=== PATIENT | male | born 1960 ===

== ENCOUNTER 2023-07-24 11:09 | Outpatient (REF) | payer OTHER, SELFPAY ==
[2023-07-24 14:25] LABS: MANUAL DIFF FLAG NO
[2023-07-24 14:37] LABS: Basophils Percent Auto 0.4 % (0-2); Eosinophils Absolute Auto 0.4 X10*3/uL (0.0-0.4); Eosinophils Percent Auto 4.2 % (0-4); Hematocrit 46.6 % (42.0-52.0); Hemoglobin 15.2 g/dl (14.0-18.0); Imm Gran Abs Auto 0.03 X10*3/uL (0.00-0.03); Imm Gran Pct Auto 0.3 % (0.0-0.4); Lymphocytes Absolute Auto 2.3 X10*3/uL (1.2-4.9); Lymphocytes Percent Auto 23.1 % (20-40); Mean Corpuscular HGB Conc 32.6 g/dl (31.0-36.0); Mean Corpuscular Hemoglobin 30.1 pg (27.0-33.0); Mean Corpuscular Volume 92.3 fL (80.0-98.0); Mean Platelet Volume 10.3 fL (9.4-12.4); Monocytes Absolute Auto 0.8 X10*3/uL (0.1-1.2); Monocytes Percent Auto 7.9 % (2-11); Neutrophils Absolute Auto 6.5 x10*3/uL (2.0-8.3); Neutrophils Percent Auto 64.1 % (45-73); Platelet Count 348 X10*3/uL (160-400); Red Blood Count 5.05 X10*6/uL (4.60-5.80); Red Cell Distribution Width 13.1 % (11.0-16.0); White Blood Count 10.1 X10*3/uL (4.8-10.8)
[2023-07-24 15:20] LABS: Alanine Aminotransferase 22 U/L (0-40); Alkaline Phosphatase 73 U/L (39-117); Anion Gap 11 (12-20); Aspartate Amino Transferase 16 U/L (5-37); Bilirubin Total 0.4 mg/dL (0.0-1.0); Blood Urea Nitrogen 13 mg/dL (9-16); Calcium 9.5 mg/dL (8.4-10.2); Carbon Dioxide 31 mmol/L (22-29); Chloride 102 mmol/L (96-108); Cholesterol 176 mg/dL (<200); Estimated Glomerular Filt Rate > 60; Glucose Fasting 83 mg/dL (60-99); HDL Cholesterol 35 mg/dL (>40); LDL Cholesterol Calculated 120 mg/dL (<100); Potassium 4.4 mmol/L (3.3-5.1); Sodium 140 mmol/L (135-145); Total Protein 8.1 g/dL (6.5-8.0); Triglycerides 109 mg/dL (<150)
[2023-07-24 15:23] LABS: Prostate Specific Antigen Scr 5.97 ng/mL (<0.05-4.0)
[2023-07-24 15:26] LABS: TSH reflex Free T4 2.44 uIU/mL (0.32-4.0)
== END 2023-07-24 11:10 | disposition home or self-care (01) ==
LOC: HO.WFDLDS 11:09
PROVIDERS: Visit Provider Family Medicine
DX: Z00.00 Encounter for general adult medical examination without abnormal findings (principal); R13.10 Dysphagia, unspecified; Z86.73 Personal history of transient ischemic attack (TIA), and cerebral infarction without residual deficits; Z12.5 Encounter for screening for malignant neoplasm of prostate
CPT/HCPCS: 36415; 80053; 80061; 84153; 84443; 85025

== ENCOUNTER 2023-08-07 11:19 | Outpatient (REF) | payer OTHER, SELFPAY ==
[2023-08-07 13:28] LABS: Appearance Urine Clear; Color Urine Yellow; Glucose Urine UA Negative (Negative); Leukocyte Esterase Urine Trace (Negative); Nitrite Urine Negative (Negative); PH 6.5 (5.0-9.0); Specific Gravity - Urine 1.025 (1.005-1.025); UMIC TRIGGER UA YES; Urine Blood Negative (Negative); Urine Ketones Negative (Negative); Urine Protein Negative (Neg-Trace)
[2023-08-07 13:40] LABS: Bacteria Urine None Seen (None Seen); Hyaline Casts Urine 0-2 /LPF (0-2); RBC Urine 0-2 /HPF (0-2); Squamous Epithelial Cell Urine 0-2 /HPF (0-2); WBC Urine 0-5 /HPF (0-5)
[2023-08-07 16:34] LABS: Creatinine Urine 326.41 mg/dL; Microalbum/Creatinine Ratio Ur 8.5 ug/mg cr (<30)
[2023-08-07 17:07] LABS: Prostate Specific Antigen Scr 6.27 ng/mL (<0.05-4.0)
== END 2023-08-07 11:20 | disposition home or self-care (01) ==
LOC: HO.HMGCLDS 11:19
PROVIDERS: PCP Family Medicine; Visit Provider Family Medicine
DX: Z00.00 Encounter for general adult medical examination without abnormal findings (principal); I10 Essential (primary) hypertension; R97.20 Elevated prostate specific antigen [PSA]; Z12.5 Encounter for screening for malignant neoplasm of prostate
CPT/HCPCS: 36415; 81001; 82043; 82570; 84153

== ENCOUNTER 2023-09-30 14:50 | Outpatient (AMB) | payer OTHER, SELFPAY ==
--- NOTE | 2023-09-30 15:25 | A.OFFVIS_ITS ---
Intake Visit Reasons: Elevated PSA Intake Note: New patient is present for Elevated PSA Entry Level Account Manager Required: Yes Entry Level Account Manager Language: Qatari Allergies levofloxacin Allergy (Intermediate, Verified 11/13/23 13:04) Rash Medication List - Last Reconciled 09/30/23 by Brent Vasquez MD aripiprazole (Abilify) 2 mg PO BEDTIME 30 days aspirin (Adult Aspirin Regimen) 81 mg PO DAILY 90 days levofloxacin 500 mg PO ONCE 3 days lisinopril 5 mg PO DAILY 90 days omeprazole 40 mg PO DAILY 90 days HPI Comments Details: Fercho is a pleasant Qatari-speaking male. He is a patient of Dr. Yates. He has seen for the following urologic conditions - elevated PSA Persistent elevated PSA recommend prostate biopsy PSA 08/11 6.3 PFSH Medical History High blood pressure High cholesterol Mini stroke Surgical History S/P cholecystectomy History of appendectomy Family History Father Colon cancer Social History Household Members: Family Both parents involved: No Caregiver staying overnight: No Housing: House Are you a primary daycare provider to a significant other at home: No Do you presently have visiting nurse or other home services: No 75 years or older and lives alone: No Alcohol intake: never Patient Tobacco Use Status: Never used Tobacco e-Cigarette/Vaping Use: Never Used Substance Use Type: Marijuana service: No Current occupational status: other Cognitive needs: No Hearing needs: No Vision needs: No Review of Systems Const Denies chills and Denies fever(s) Card Reports no additional complaints and Denies syncope Resp Denies cough GI Denies abdominal pain and Denies heartburn Reports as per HPI and Denies change in libido Neuro Denies syncope Psych Denies change in libido Endo Denies change in libido Physical Exam Const General: cooperative, healthy appearing, comfortable and no acute distress Orientation/consciousness: patient oriented x3 HEENT Face and sinus: Yes normal facial exam Mouth: moist mucous membranes Neck Neck: Yes normal visual inspection, Yes full ROM and Yes trachea midline Chest Chest palpation & inspection: normal inspection of the chest Resp Effort & Inspection: normal respiratory effort, able to speak in complete sentences and no respiratory distress GI Inspection: Yes normal to inspection Back/Spine/Pelvis Cervical Spine: normal cervical lordosis Thoracic/Lumbar Spine: thoracic and lumbar spine normal to inspection Skin General skin exam: no rashes or lesions noted Neuro General: patient oriented x3, gait normal, tone normal and moves all extremities Extrem General: Yes normal to inspection and Yes capillary refill normal Assessment & Plan Assessment & Plan (1) Elevated PSA: Code(s): R97.20 - Elevated prostate specific antigen [PSA] Category: Medical Plan Prostate biopsy Medications: New levofloxacin Take day before, day of and day after procedure 500 mg PO ONCE 3 tabs 0RF 3 days R97.20 - Elevated prostate specific antigen [PSA] Patient Instructions: Imaging studies, laboratory and physical exam results were discussed and reviewed in detail. No major barriers to patient understanding were identified. An opportunity to ask questions regarding the treatment plan was provided. All questions were answered. The patient expressed understanding and agreement with the above treatment plan. The patient is aware they should contact our office by phone for worsening of their current condition or the appearance of new urologic symptoms. Compliance is encouraged with any medications and followup testing that is ordered. It is a privilege to participate in the urologic care of your patient. If you have any questions or concerns regarding treatment for the above conditions, or other urologic issues, please do not hesitate to contact me. The office telephone contact is [phone]. This note is constructed using voice recognition software. While every effort has been made to ensure accuracy assistant signal maintainer errors may have been included. Yours sincerely, Dr Brent Vasquez MD, [facility] - Urology Providers of Expert, Compassionate Care for the Genitourinary System Coding Level of Care Code New Pt Level 4 (83672) Diagnoses Elevated PSA R97.20
== END 2023-09-30 15:59 | disposition home or self-care (01) ==
PROVIDERS: PCP Family Medicine; Visit Provider Urology
DX: R97.20 Elevated prostate specific antigen [PSA] (principal)
CPT/HCPCS: 99204

== ENCOUNTER → 2023-09-30 14:50 | Outpatient (BNVA) | payer OTHER, SELFPAY | PROVIDERS: PCP Family Medicine; Visit Provider Urology | DX: R97.20 Elevated prostate specific antigen [PSA] (principal) | CPT/HCPCS: 99202 ==

== ENCOUNTER 2023-10-20 07:44 | Outpatient (REF) | payer OTHER, SELFPAY ==
--- NOTE | 2023-10-20 08:42 | W.PM.OPN ---
Operative Note Operative Note Date of Service: 10/20/23 Narrative: Preoperative diagnosis: Elevated PSA Postoperative diagnosis: Elevated PSA Procedure: 1. transrectal ultrasound measurement of prostate 2. transrectal ultrasound-guided pudendal nerve block 3. transrectal ultrasound-guided prostate biopsy 12 core Surgeon: Dr. Brent Vasquez Anesthetic: 10cc 1% lidocaine Indications for procedure: Elevated PSA 6.3 Counselling: Technical aspects, risks and benefits of proposed procedure were discussed in full. All questions have been answered, written consent has been obtained and patient agrees to proceed. Procedure: The patient was brought into the procedure area and placed in a left lateral decubitus position. Patient identity confirmed. Perioperative antibiotics confirmed. Safety pause time out performed. ИВАН performed to dilate rectal sphincter Iodine 10cc with 60 cc gel was placed per rectum to reduce infection risk using a catheter tip syringe. 8 Hz Lamar rectal end-fire ultrasound probe was placed transrectally without difficulty. The prostate was visualized. Seminal vesicles were normal. Prostate margins were clearly demarcated. Bladder was seen superiorly. No cystic structures were noted No calcifications were noted at the surgical margin The prostate was otherwise heterogenous in nature, prominent peripheral zone The prostate was measured in 3 dimensions Prostatic Width: 6.4 Prostatic Height: 5.6 Urethral Length: 6.2 Total volume equals : 115 gm An ultrasound-guided pudendal nerve block was performed using a 22 gauge spinal needle in the sagittal plane. 4 cc of 1% lidocaine placed at the junction of each seminal vesicle and 2 cc placed at the apex of the prostate. A 12 core biopsy was performed with 6 cores each side using an 18 gauge prostate biopsy gun. Two cores were taken at the apex, mid and base. Cores were spaced between lateral and medial. He tolerated the procedure well, minimal rectal bleeding. Blood pressure remained stable following procedure. Was able to ambulate to bathroom after 5 minutes. Printed instructions regarding antibiotic use and common side effects from the procedure such as low-grade temperature, potential infection and bleeding were given Preprocedure and postprocedure blood pressures were normalized with readings after the procedure and 5 minutes later. Final vital signs show temperature 98.5 degrees, BP 146/84 O2 96% room air with a pulse of 77. This is in line with preprocedure findings Pathology: 12 core prostate biopsy.
== END 2023-10-20 07:45 | disposition home or self-care (01) ==
LOC: HO.US 07:44
PROVIDERS: PCP Family Medicine; Visit Provider Urology
DX: R97.20 Elevated prostate specific antigen [PSA] (principal)
CPT/HCPCS: 55700; 76942; 88305

== ENCOUNTER → 2023-10-20 07:44 | Outpatient (BNV) | payer OTHER, SELFPAY | PROVIDERS: PCP Family Medicine; Visit Provider Urology | DX: R97.20 Elevated prostate specific antigen [PSA] (principal) | CPT/HCPCS: 55700; 76942 ==

== ENCOUNTER 2023-11-12 13:12 | Outpatient (AMB) | payer OTHER, SELFPAY ==
--- NOTE | 2023-11-12 13:14 | MHC.OFFVIS ---
Intake Visit Reasons: Prostrate biopsy results Intake Note: Patient is Present for Telephone Follow Up Prostate Biopsy Urology Med:None Antibiotic Allergy: Levofloxacin Blood Thinner:Aspirin Tower Hoist Operator Required: Yes Tower Hoist Operator Language: Pashto Allergies levofloxacin Allergy (Intermediate, Verified 11/12/23 13:16) Rash HPI Comments Details: Fercho is a pleasant Pashto-speaking male. He is a patient of Dr. Yates. He has seen for the following urologic conditions - elevated PSA Discuss biopsy results Shows chronic inflammation setting of BPH Recommend starting finasteride Six-month follow-up Elevated PSA 08/11 6.3 PFSH Medical History High blood pressure High cholesterol Mini stroke Surgical History S/P cholecystectomy History of appendectomy Family History Father Colon cancer Social History Household Members: Family Both parents involved: No Caregiver staying overnight: No Housing: House Are you a primary career development manager to a significant other at home: No Do you presently have visiting nurse or other home services: No 75 years or older and lives alone: No Alcohol intake: never Patient Tobacco Use Status: Never used Tobacco e-Cigarette/Vaping Use: Never Used Substance Use Type: Marijuana service: No Current occupational status: other Cognitive needs: No Hearing needs: No Vision needs: No Review of Systems Const All systems reviewed & are unremarkable except as noted in HPI and below Reports no additional complaints Resp Reports no additional complaints GI Reports no additional complaints Reports as per HPI Musc Reports no additional complaints Physical Exam Telemedicine evaluation Appropriate responses Regular breathing rate and rhythm HEENT Head: Yes normal to inspection Ears: hearing grossly normal bilaterally Eyes General: appearance normal, both eyes and all related structures Neck Neck: Yes normal visual inspection Chest Chest palpation & inspection: normal inspection of the chest Resp Effort & Inspection: normal respiratory effort and able to speak in complete sentences Telehealth Telehealth Telehealth Platform: [facility] Location of provider rendering services: practice address Location of patient: address on file Patient Identification confirmed using: Name, : Yes Telehealth method: video Patient verbally consented to treatment: Yes Patient verbally consented to billing insurance company: Yes Patient informed of any privacy concerns related to visit: Yes Minutes spent on Phone/Video with Pt.: 15 Assessment & Plan Assessment & Plan (1) Elevated PSA: Code(s): R97.20 - Elevated prostate specific antigen [PSA] Category: Medical Plan Start finasteride 6m f/u PSA Orders: Orders PSA,Total (Free>4and<10) 6 Months R97.20 - Elevated prostate specific antigen [PSA] Medications: New finasteride 5 mg PO DAILY 90 days 90 tabs 1RF N13.8 - Other obstructive and reflux uropathy, N40.1 - Benign prostatic hyperplasia with lower urinary tract symptoms, R33.9 - Retention of urine, unspecified, R97.20 - Elevated prostate specific antigen [PSA] Patient Instructions: Imaging studies, laboratory and physical exam results were discussed and reviewed in detail. No major barriers to patient understanding were identified. An opportunity to ask questions regarding the treatment plan was provided. All questions were answered. The patient expressed understanding and agreement with the above treatment plan. The patient is aware they should contact our office by phone for worsening of their current condition or the appearance of new urologic symptoms. Compliance is encouraged with any medications and followup testing that is ordered. It is a privilege to participate in the urologic care of your patient. If you have any questions or concerns regarding treatment for the above conditions, or other urologic issues, please do not hesitate to contact me. The office telephone contact is [phone]. This note is constructed using voice recognition software. While every effort has been made to ensure accuracy water/wastewater engineer errors may have been included. Yours sincerely, Dr Brent Vasquez MD, [facility] - Urology Providers of Expert, Compassionate Care for the Genitourinary System Coding Level of Care Code Tele Est Pt Level 4 (66859) Diagnoses Elevated PSA R97.20
== END 2023-11-12 14:10 | disposition home or self-care (01) ==
LOC: HO.HUSH 13:12
PROVIDERS: PCP Family Medicine; Visit Provider Urology
DX: R97.20 Elevated prostate specific antigen [PSA] (principal)
CPT/HCPCS: 99214

== ENCOUNTER → 2023-11-12 13:12 | Outpatient (BNVA) | payer OTHER, SELFPAY | PROVIDERS: PCP Family Medicine; Visit Provider Urology ==

== ENCOUNTER 2023-11-13 12:58 | Outpatient (AMB) | payer OTHER, SELFPAY ==
[2023-11-13 13:00] VITALS: BP 136/82; PULSE 85; O2SAT 97; BMI 28.0
--- NOTE | 2023-11-13 13:05 | A.OFFPC_ITS ---
Vital Signs 11/13/23 13:00 Height 5 ft 10 in Weight 195 lb BMI 28.0 BP 136/82 Blood Pressure Location Rt brachial Position Sitting Pulse 85 Pulse Source Pulse Oximeter Pulse Oximetry (%) 97 Oxygen Delivery Method Room Air Intake Visit Reasons: Extended exam with f/u labs and health maint. Allergies levofloxacin Allergy (Intermediate, Verified 11/13/23 13:04) Rash Tobacco use date assessed: 07/24/23 Dental Screening Dental Screen Date: 07/24/23 HPI Extended exam with f/u labs and health maint. HPI Details 63 y/o male presents for an extended exa m with f/u labs and health maintenance. Labs drawn 07/24/23. Reviewed labs with pt. Triglycerides 109. TC 176. LDL 120. HDL low at 35. PSA elevated - 6.27. Has not gotten a call from ENT yet for a barium swallow test - they report ongoing difficulty swallowing. PHQ-9 24, HUNTER-7 21 today. Had not received Abilify. Blood pressure today 136/82. He is on lisinopril 10mg daily. [facility] Medical History High blood pressure High cholesterol Mini stroke Surgical History S/P cholecystectomy History of appendectomy Family History Father Colon cancer Social History Household Members: Family Both parents involved: No Caregiver staying overnight: No Housing: House Are you a primary resident care associate to a significant other at home: No Do you presently have visiting nurse or other home services: No 75 years or older and lives alone: No Alcohol intake: never Patient Tobacco Use Status: Never used Tobacco e-Cigarette/Vaping Use: Never Used Substance Use Type: Marijuana service: No Current occupational status: other Cognitive needs: No Hearing needs: No Vision needs: No Questionnaire PHQ-9 Over the last 2 weeks, how often have you been bothered by any of the following problems? 1. Little interest or pleasure in doing things: nearly every day 2. Feeling down, depressed, or hopeless: nearly every day 3. Trouble falling or staying asleep, or sleeping too much: nearly every day 4. Feeling tired or having little energy: nearly every day 5. Poor appetite or overeating: nearly every day 6. Feeling bad about yourself - or that you are a failure or have let yourself or your family down: nearly every day 7. Trouble concentrating on things, such as reading the newspaper or watching television: nearly every day 8. Moving or speaking so slowly that other people could have noticed. Or the opposite - being so fidgety or restless that you have been moving around a lot more than usual: nearly every day 9. Thoughts that you would be better off or of hurting yourself in some way: not at all Total score: 24 Depression Screening Interpretation: Positive Depression Screening Done: Yes 94104 - PHQ-9 Billing: Yes Source: Developed by Drs. Memo Tam, Malika Mason, Darius Acuna and colleagues, with an educational micaela from [employer]. Thrive Questionnaire Date Thrive assessed: 07/24/23 I am a: Patient What is your living situation today?: I have a place to live, but I am worried about losing it in the future Within the past 12 months, did the food you bought not last and you didn't have the money to get more?: Never true Within the past 12 months, did you worry whether your food would run out before you got money to buy more?: Never true Do you have trouble paying for medicines?: No Do you have trouble getting transportation to medical appointments?: No Do you have trouble paying your heating and electricity bill?: No Do you have trouble taking care of your child, family member or friend?: No Do you have trouble with day-to-day activities such as bathing, preparing meals, shopping, managing finances, etc.?: Yes Are you currently unemployed and looking for a job?: No Are you interested in more education?: No THRIVE Score: 1 AUDIT C Alcohol Use Questionnaire (AUDIT-C) 1. How often do you have a drink containing alcohol?: Never 3. How often do you have six or more drinks on one occasion?: Never Total Score: 0 HUNTER-7 AMB Questionnaire HUNTER-7 Date HUNTER - 7 assessed: 07/24/23 Feeling nervous, anxious, or on edge: 3 = Nearly every day Not being able to stop or control worryin = Nearly every day Worrying too much about different things: 3 = Nearly every day Trouble relaxin = Nearly every day Being so restless that it is hard to sit still: 3 = Nearly every day Becoming easily annoyed or irritable: 3 = Nearly every day Feeling afraid as if something awful might happen: 3 = Nearly every day Total HUNTER-7 score (0-4 normal; 5-9 mild; 10-14 moderate; 15-21 severe): 21 Source: Developed by Drs. Memo Tam, Malika Mason, Darius Acuna and colleagues, with an educational micaela from [employer]. HUNTER-7 Assessment Billing HUNTER-7 Assessment Tool: HUNTER-7 Assessment 13502 Review of Systems Const Denies chills, Denies fatigue, Denies fever(s), Denies headache(s) and Reports weakness Eyes Denies change in vision ENT Denies dizziness, Denies headache(s), Denies hearing loss, Denies nasal congestion, Denies sinus pain, Denies sinus pressure and Denies sore throat Card Denies chest pain, Denies lightheadedness, Denies dyspnea and Denies other (palpitations) Resp Denies cough, Denies dyspnea and Denies wheezing GI Denies abdominal pain, Denies melena, Denies hematochezia, Denies change in bowel habits, Denies dyspepsia and Denies nausea Denies hematuria and Denies dysuria Musc Reports abnormal gait, Denies myalgias, Denies arthralgias, Denies numbness and Denies tingling Skin/Breast Denies rash, Denies unusual bruising and Denies wounds Neuro Reports abnormal gait, Denies dizziness, Denies headache(s), Denies memory loss, Denies numbness, Denies Sensory deficit (Neuro), Denies tingling and Reports weakness Psych Reports anxiety, Reports depression and Denies memory loss Endo Denies cold intolerance, Denies fatigue, Denies heat intolerance, Denies polydipsia and Denies polyuria Sebastian/Lymph Denies easy bleeding and Denies easy bruising Aller/Immun Denies wheezing Physical exam (Primary Care) Vital Signs: Last Vital Signs Pulse 85 11/13/23 13:00 BP 136/82 11/13/23 13:00 Pulse Ox 97 11/13/23 13:00 Oxygen Delivery Method Room Air 11/13/23 13:00 BMI result Body Mass Index 28.0 Tobacco/Smoking Status: Tobacco use Status Tobacco use date assessed 07/24/23 11/13/23 13:05 Patient Tobacco Use Status Never used Tobacco 11/13/23 13:05 e-Cigarette/Vaping Use Never Used 11/13/23 13:05 PHQ-9: PHQ-9 Score PHQ-9: Total score 11/13/23 13:12 Depression Screening Interpretation: Positive Thrive Assessment: Date of Thrive Assessment Date Thrive assessed 07/24/23 11/13/23 13:05 Const General: no acute distress, well developed, alert and awake Nutritional Appearance: well nourished Orientation/consciousness: patient oriented x3 HENMT Head: Yes normocephalic and Yes atraumatic Ears: hearing grossly normal bilaterally and TM's normal bilaterally General nose exam: Normal external nose present and Normal nares present Mouth: Normal oral and palatal mucosa present and moist mucous membranes Teeth and gingiva: dentition normal Throat: Yes posterior oropharynx normal Eyes General: appearance normal, both eyes and all related structures Pupils: Equal, round and reactive pupils present and Pupil accommodation reflex normal EOM: EOMs intact bilaterally Neck Neck: Yes normal visual inspection, Yes no lymphadenopathy and Yes trachea midline Thyroid: Thyroid normal Carotids: no bruits Lymphatic: no lymphadenopathy noted Chest Chest palpation & inspection: normal inspection of the chest Resp Effort & Inspection: normal respiratory effort Auscultation: clear to auscultation bilaterally Cardio Rate: regular rate Rhythm: regular rhythm Heart sounds: S1 normal heart sound present, S2 normal heart sound present, no gallops, no murmurs and no rubs Bruits: no abdominal aortic bruits and no carotid bruits GI Palpation (GI): No Abdominal aortic bruit present, Soft to palpation, nontender, No hepatosplenomegaly present and No Rebound tenderness present Auscultation: normal bowel sounds General: Yes no CVA tenderness Back/Spine/Pelvis Back: no CVA tenderness Cervical Spine: cervical ROM normal and No Cervical spine tenderness Thoracic/Lumbar Spine: thoraco-lumbar ROM normal, No pain with thoraco-lumbar ROM, No thoracic spinal tenderness and No lumbar spinal tenderness Skin Lesions: no lesions Rashes: no rashes Trauma: no lacerations or abrasions Wounds: no wounds Nails: normal Neuro Other: L sided weakness General: patient oriented x3 Cranial nerves: Yes Equal, round and reactive pupils present Cognition (Neuro): normal cognition Gait exam (Neuro): gait abnormal Motor exam (neuro): strength not 5/5 throughout Sensory Exam: No Sensory deficit (Neuro) Deep tendon reflexes (DTR's): Right patellar reflex intensity grade: 2+ and Left patellar reflex intensity grade: 2+ Extrem General: Yes normal to inspection and No edema Psych Appearance: grossly normal Affect: normal affect Attitude: cooperative Thought process: Normal thought process present Assessment and Plan Assessment & Plan (1) High cholesterol: Code(s): E78.00 - Pure hypercholesterolemia, unspecified Plan: LDL?cholesterol?is?too ?high.??Goal?is?less?than?70?for?patient?with?history?of?CVA. Start?atorvastatin Will?follow-up?in?6?weeks (2) Elevated PSA: Code(s): R97.20 - Elevated prostate specific antigen [PSA] Plan: Followed?by? Follow-up?with?urology?as?recommended (3) High blood pressure: Code(s): I10 - Essential (primary) hypertension Plan: Blood?pressure?controlled?but?still?a?little?high er?than?goal.??Recommend?goal?of?less?than?130/80 Increase?lisinopril?to?10?mg?daily (4) Difficulty swallowing: Code(s): R13.10 - Dysphagia, unspecified Plan: Had?ordered?a?modified?barium?swallow?study Patient?has?not?been?contacted?about?this I?have?asked?the?office?manager lean?to?look?into ?this?and?get?this?scheduled?as?soon?as?possible He?also?had?some?GERD?and?I?gave?him?omeprazole?to?see?if?this?would?help?with?s wallowing. It?has?improved?GERD?but?has?not?improved?swallowing (5) Depression with anxiety: Code(s): F41.8 - Other specified anxiety disorders Plan: Patient?has?a?psychiatrist He?has?been?taking?fluoxetine?and?hydroxyzine. Still?significantly?elevated?anxiety?and?depression We?had?discussed?using?Abilify?at?last?visit?but?patient?has?not?receive?this. Sent?script?again He?can?discontinue?if?causing?any?adverse?effects?or?not?helping.??Discuss?with? psychiatrist Follow-up?with?psychiatrist?as?recommended (6) Screening for colon cancer: Code(s): Z12.11 - Encounter for screening for malignant neoplasm of colon Plan: Referred?to?Gastroenterology (7) Screening for prostate cancer: Code(s): Z12.5 - Encounter for screening for malignant neoplasm of prostate Plan: As?above,?follow-up?with??[facility]?as?recommended (8) Weakness: Code(s): R53.1 - Weakness Plan: Patient?has?lower?extremity?weakness?on?the?left?secondary?to?CVA.??Also?unstead y?gait Recommended?a?cane?and?I?have?given?him?a?script?for?this (9) Unsteady gait: Code(s): R26.81 - Unsteadiness on feet Plan: As?above (10) Adult general medical exam: Code(s): Z00.00 - Encounter for general adult medical examination without abnormal findings Plan: 63-year-old?male?presents?for?extended?exam Orders: Orders Comprehensive [place]. Panel Fast Today E78.00 - Pure hypercholesterolemia, unspecified, Z00.00 - Encounter for general adult medical examination without abnormal findings Lipid Panel Today E78.00 - Pure hypercholesterolemia, unspecified, Z00.00 - Encounter for general adult medical examination without abnormal findings Referrals Gastroenterology Referral Z12.11 - Encounter for screening for malignant neoplasm of colon Medications: New atorvastatin 40 mg PO BEDTIME 90 days 90 tabs 3RF cane Daily, As directed, 999 days 1 ea 0RF R26.81 - Unsteadiness on feet, R53.1 - Weakness, Z86.73 - Personal history of transient ischemic attack (TIA), and cerebral infarction without residual deficits Changed From lisinopril 5 mg PO DAILY 90 days 90 tabs 0RF To lisinopril 10 mg PO DAILY 90 days 90 tabs 2RF Refilled aripiprazole (Abilify) 2 mg PO BEDTIME 30 days 30 tabs 2RF Coding Level of Care Code Est Pt Level 4 (99645) Diagnoses High cholesterol E78.00 Elevated PSA R97.20 High blood pressure I10 Difficulty swallowing R13.10 Depression with anxiety F41.8 Screening for colon cancer Z12.11 Screening for prostate cancer Z12.5 Weakness R53.1 Unsteady gait R26.81 Adult general medical exam Z00.00 Additional Codes HUNTER-7 Assessment Billing - HUNTER-7 Assessment Tool: HUNTER-7 Assessment [id number] ([id number])
== END 2023-11-13 13:44 | disposition home or self-care (01) ==
PROVIDERS: PCP Family Medicine; Visit Provider Family Medicine
DX: Z00.00 Encounter for general adult medical examination without abnormal findings (principal); E78.00 Pure hypercholesterolemia, unspecified; R97.20 Elevated prostate specific antigen [PSA]; I10 Essential (primary) hypertension; R13.10 Dysphagia, unspecified; F41.8 Other specified anxiety disorders; Z12.11 Encounter for screening for malignant neoplasm of colon; Z12.5 Encounter for screening for malignant neoplasm of prostate; R53.1 Weakness; R26.81 Unsteadiness on feet
CPT/HCPCS: 99214; 99396

== ENCOUNTER 2023-12-23 13:58 | Outpatient (REF) | payer OTHER, SELFPAY ==
--- NOTE | ~2023-12-23 | FL_ITS ---
EXAMINATION: Modified Barium Swallow CLINICAL INFORMATION: Dysphagia. COMPARISON: Barium swallow examination in 12/24/2017. TECHNIQUE: Modified barium swallow was performed under lateral fluoroscopy with patient in standing position. Barium mixed with solids and liquids of different consistencies was administered by the speech pathologist. Examination was recorded in the fluoroscopy suite. FINDINGS: Laryngeal penetration is observed with multiple consistencies of barium. No subglottic aspiration was observed. The patient swallow the barium tablet without any difficulty. The tablet passed into the stomach with minimal stasis. FLUOROSCOPY TIME: 58 seconds Number of Spot Images: N/A DOSE AREA PRODUCT: 622.5 uGy-m2 (microgray-meter squared) FL/FL Modified Barium Swallow IMPRESSION: 1. Laryngeal penetration was observed with multiple consistencies of barium. No subglottic aspiration was observed. Refer to the speech therapy report for further clarification This procedure was performed by Brian Sanchez PA-C, and supervised by Dr. Tatum Electronically signed by: Minh Tatum MD 12/25/2023 03:45 PM EDT
[2023-12-23 15:45] LABS: Alanine Aminotransferase 24 U/L (0-40); Albumin Level 4.1 g/dL (3.5-5.0); Alkaline Phosphatase 79 U/L (39-117); Anion Gap 14 (12-20); Aspartate Amino Transferase 17 U/L (5-37); Bilirubin Total 0.4 mg/dL (0.0-1.0); Blood Urea Nitrogen 18 mg/dL (9-16); Calcium 9.7 mg/dL (8.4-10.2); Carbon Dioxide 24 mmol/L (22-29); Chloride 105 mmol/L (96-108); Cholesterol 113 mg/dL (<200); Estimated Glomerular Filt Rate > 60; Glucose Fasting 135 mg/dL (60-99); HDL Cholesterol 33 mg/dL (>40); LDL Cholesterol Calculated 57 mg/dL (<100); Potassium 3.9 mmol/L (3.3-5.1); Sodium 139 mmol/L (135-145); Total Protein 7.8 g/dL (6.5-8.0); Triglycerides 117 mg/dL (<150)
[2023-12-23 15:55] LABS: Appearance Urine Clear; Color Urine Yellow; Glucose Urine UA Negative (Negative); Leukocyte Esterase Urine Negative (Negative); Nitrite Urine Negative (Negative); PH 5.5 (5.0-9.0); Specific Gravity - Urine >= 1.030 (1.005-1.025); Urine Blood Negative (Negative); Urine Ketones Negative (Negative); Urine Protein Negative (Neg-Trace)
--- NOTE | 2023-12-25 14:32 | MHC.SL.IMP ---
Date of Plan of Treatment: 12/23/23 Onset of Symptoms/Illness: 12/22/20 Date Treatment Started: 12/23/23 Admitting Diagnosis: Dysphagia Primary Speech & Language Diagnosis: R13.10 Dysphagia Reason for Today's Visit: 01067 Modified Barium Swallow Study Pre-evaluation Dietary Consistencies: Regular Pre-evaluation Liquid Consistency: Thin Pre-evaluation Medication Administration: Whole with Liquid Medical History: Modified Barium Swallow Study Fluoroscopic Evaluation of Swallowing Function CPT Code 06784 Evaluation Year: 2023 Reason for Study: Difficulty swallowing Referring Physician: Ryley Yates MD Evaluating Clinician: Kerrie Fisher MA, CCC-VOCATIONAL REHABILITATION ADMINISTRATOR Study Number: 1 Patient Name: Fercho Rizo Colon Status: Outpatient, Ambulatory Age: 63 Gender: Male Medical History Medical History High blood pressure High cholesterol Mini stroke Surgical History S/P cholecystectomy History of appendectomy Current (pre-evaluation) Intake/Diet: Route: PO Diet Grade: Regular Liquid Consistencies: Thin Pre-Study Functional Oral Intake Scale (FOIS): 7- Total oral intake with no restrictions Pain: None reported at time of study SUBJECTIVE: Patient is a 63 year old male with history of CVA referred for a modified barium swallow study by his primary care provider, Ryley Yates MD. Patient reportedly takes omeprazole for GERD, but has persisting issues swallowing. Patient reports he has difficulty with pills and solid foods. Patient describes feeling the pill get stuck and ?go down very slowly? after drinking a lot of water. Patient reports onset of dysphagia 2-3 years ago. He denies odynophagia. Oral Motor Exam Facial Symmetry: Symmetrical Mouth Occlusion: Normal Oral-Facial Teeth Characteristics: Intact/Normal Oral-Facial Lip Pucker Description: Normal Oral-Facial Smile (Lips) Description: Normal Oral-Facial Puff Cheeks Description: Normal Tongue Size: Normal Food and Liquid Trials: Oral Impairment: Lip Closure: Did not test Oral Impairment: Tongue Control During Bolus Hold: Did not test Oral Impairment: Bolus Preparation/Mastication: 1=Slow prolonged chewing/mashing with complete re-collection Oral Impairment: Bolus Transport/Lingual Motion: 0=Brisk tongue motion Oral Impairment: Oral Residue: 2=Residue collection on oral structures Oral Impairment:Initiation of Pharyngeal Swallow: 1=Bolus head in valleculae Pharyngeal Impairment: Soft Palate Elevation: 0=No bolus between soft palate (SP)/pharyngeal wall (PW) Pharyngeal Impairment: Laryngeal Elevation: 1=Partial thyroid cartilage/arytenoids to epiglottic petiole movement Pharyngeal Impairment: Anterior Hyoid Excursion: 1=Partial anterior movement Pharyngeal Impairment: Epiglottic Movement: 0=Complete inversion Pharyngeal Impairment: Laryngeal Vestibular Closure:: 1=Incomplete: narrow column air/contrast in laryngeal vestibule Pharyngeal Impairment: Pharyngeal Stripping Wave: 0=Present: complete Pharyngeal Impairment: Pharyngeal Contraction: Did not test Pharyngeal Impairment: Pharyngoesophageal Segment Openin=Partial distention/partial duration: partial obstruction of flow Pharyngeal Impairment: Tongue Base (TB) Retraction: 1=Trace column of contrast/air between TB and posterior PW Pharyngeal Impairment: Pharyngeal Residue: 1=Trace residue within or on pharyngeal structures Pharyngeal Impairment: Esophageal Clearance Upright Position: 1=Esophageal retention Impressions and Recommendations Clinical Observations: OBJECTIVE: Time-out: performed at 15:00 Evaluation Start: 14:30; Stop: 14:35 Patient Positioning: Standing Viewing Planes: LATERAL ONLY Contrast: MBSImP? Standardized Protocol using commercially prepared, standardized Barium viscosities, including: Varibar? THIN LIQUID (40% w/v, <15 cps) , 1/2 Shortbread Cookie (1 x1 x.25 ) MBSImP ID: [id number] [facility] Results: Lip closure for intraoral bolus containment could not be assessed due to logistical reasons not related to physiologic impairment. Tongue control during bolus hold could not be assessed due to logistical reasons not related to physiologic impairment. Bolus preparation and mastication resulted in slow, prolonged chewing/mashing but with complete re-collection. Bolus transport/lingual motion was with brisk tongue motion. Oral residue was a collection on oral structures. Initiation of the pharyngeal swallow occurred when the bolus head was in the valleculae. Soft palate elevation resulted in no bolus between the soft palate and the pharyngeal wall. Laryngeal elevation was decreased, with partial superior movement of the thyroid cartilage/partial approximation of the arytenoids to the epiglottic petiole. Anterior hyoid excursion demonstrated partial anterior movement. Epiglottic movement resulted in complete inversion. Laryngeal vestibular closure was incomplete, with a narrow column of air/contrast noted within the laryngeal vestibule at the height of the swallow. Pharyngeal stripping wave was present and complete. Pharyngeal contraction could not be determined due to logistical reasons not related to physiologic impairment. Pharyngoesophageal segment opening demonstrated partial distension/partial duration, with partial obstruction of bolus flow. Tongue base retraction allowed a trace column of contrast or air between the retracted tongue base and the posterior pharyngeal wall. Pharyngeal residue was a trace within or on pharyngeal structures. Esophageal clearance in the upright position resulted in esophageal retention. Oral Impairment Score: 4 (absence of score, component 1component 2) Pharyngeal Impairment Score: 4 (absence of score, component 13) Esophageal Impairment Score: 1 Laryngeal Penetration and Aspiration: Penetration was observed in today's study. Thin Contrast entered the airway, remained above the vocal folds, and was ejected from the airway. ASSESSMENT: This exam was conducted by the speech pathologist and the radiologist. Patient was standing for lateral view and was able to feed himself without difficulty. He trialed thin (via individual cup sips), puree, and regular solid textures. Note good oral control with no anterior spilling. Mildly prolonged mastication with piece meal deglutition pattern. Posterior lingual motion was brisk and timely for the transport of bolus. There was minimal residue on the tongue with all consistencies. Pharyngeal swallow trigger initiated as the bolus head reached the valleculae. No evidence of nasopharyngeal reflux. Incomplete laryngeal elevation with complete epiglottic inversion and incomplete laryngeal vestibular closure. There was flash penetration with thin liquid. A trace amount of contrast entered the trachea above the vocal folds and immediately ejected from the airway. No evidence of aspiration during this exam. There was trace collection of residue on the tongue base and in the valleculae. Note partial distention and partial duration through the pharyngoesohpageal segment opening (PES) with some retrograde flow back up to the pyriform sinuses. Patient swallowed whole barium tablet with sips of water. Note hang up of the tablet in the upper esophagus which eventually cleared with multiple sips of water. Liquid Intake Recommendation: Thin Liquid Intake Strategies: Small Sips Dietary Recommendations: Regular Medication Administration: Whole with Liquid Please contact the pharmacy regarding appropriate crushable or liquid drug formulations that are available whenever modified delivery is recommended. Compensatory Strategies Recommended: Sitting Upright (90 deg), Small Bites and Sips, Alternate Liquids/Solids, Rate of Ingestion Change Supervision during eating and or drinking: None Needed Recommendation for Speech Therapy: NA:Typical Evaluation Text Comment: Intake Recommendations: Route: PO Diet Grade: Regular Liquid Consistencies: Thin Post-Study Functional Oral Intake Scale (FOIS): 7- Total oral intake with no restrictions This exam revealed flash penetration with thin liquids above the vocal folds which immediately and spontaneously cleared. No evidence of aspiration during this exam. Overall good clearance of the oral cavity and the pharynx. Patient swallowed whole barium tablet with sips of water, with tablet getting hung up in the upper esophagus, which eventually cleared with additional sips of water. Reduced distention of the PES and reduced duration of PES opening also noted. Suggested Referrals: The patient might benefit from a referral to: Gastroenterology Indication for Referral: Pill briefly stuck in esophagus, hx GERD, patient complaining of globus sensation Therapy Recommendations: Therapy will be discontinued, as patient?s swallow is deemed functional in the oral and pharyngeal phases based on observations made during this exam. During this exam, a whole tablet did become lodged in the esophagus and eventually cleared with additional sips of liquid. Given these observations, patient?s history of GERD, and complaints of globus sensation, he may benefit from further workup with G.I. VOCATIONAL REHABILITATION ADMINISTRATOR discussed with patient strategies to promote clearance: take small bites, chew food well, alternate with sips of liquid, take pills one at a time with multiple sips of liquid, ensuring upright position during PO intake and for at least 30 minutes afterwards. Recommend patient continue monitoring his dysphagia, if there are any changes or persisting symptoms, he may benefit from a repeat-assessment. Clinician - Supplemental, Miscellaneous Communication: It is important to note MBSS objective studies are snapshots in time and Patient function might vary with factors such as time of day or concomitant medical conditions. For this reason, the final treatment plan for this patient should rest with their medical care team. Additional recommendations should be considered with the totality of the Patient in mind. Thank for the opportunity to participate in the care of this patient. If you have any questions about the content of this report, please contact the [facility] at [facility]. Education: Education regarding findings from today's study and plans for therapy were provided to Patient only through Verbal Instruction. Understanding was expressed by the Patient only. Customer Sales Representative Clinician/Clinical Fellow: No Supervisory Statement: N/A Speech Language Pathologist: Kerrie Fisher M.A., CCC-VOCATIONAL REHABILITATION ADMINISTRATOR
== END 2023-12-23 13:59 | disposition home or self-care (01) ==
LOC: HO.XRAY 13:58
PROVIDERS: PCP Family Medicine; Visit Provider Family Medicine
DX: Z00.00 Encounter for general adult medical examination without abnormal findings (principal); R13.10 Dysphagia, unspecified; Z86.73 Personal history of transient ischemic attack (TIA), and cerebral infarction without residual deficits; E78.00 Pure hypercholesterolemia, unspecified
CPT/HCPCS: 36415; 74230; 80053; 80061; 81003; 92611

== ENCOUNTER → 2023-12-23 14:30 | Outpatient (BNV) | payer OTHER, SELFPAY | PROVIDERS: PCP Family Medicine; Visit Provider Radiology Diagnostic Radiology | DX: R13.10 Dysphagia, unspecified (principal) | CPT/HCPCS: 74230 ==

== ENCOUNTER 2023-12-30 10:52 | Outpatient (AMB) | payer OTHER, SELFPAY ==
--- NOTE | 2023-12-30 11:53 | A.OFFPC_ITS ---
Vital Signs 12/30/23 12:01 Height 5 ft 10 in Weight 199 lb 8 oz BMI 28.6 BP 108/60 Blood Pressure Location Lt brachial Position Sitting Respiration 16 Pulse 77 Pulse Source Pulse Oximeter Temp 98.5 F Temp Source Tympanic Pulse Oximetry (%) 97 Oxygen Delivery Method Room Air Intake Visit Reasons: F/U labs+cholesterol/ repeat PHQ9 needs follow up Allergies levofloxacin Allergy (Intermediate, Verified 11/13/23 13:04) Rash Medication List - Last Reconciled 12/30/23 by Ryley Yates MD aripiprazole (Abilify) 2 mg PO BEDTIME 30 days aspirin (Adult Aspirin Regimen) 81 mg PO DAILY 90 days atorvastatin 40 mg PO BEDTIME 90 days cane Daily, As directed, 999 days finasteride 5 mg PO DAILY 90 days lisinopril 10 mg PO DAILY 90 days omeprazole 40 mg PO DAILY 90 days Tobacco use date assessed: 07/24/23 Dental Screening Dental Screen Date: 07/24/23 HPI F/U labs+cholesterol/ repeat PHQ9 needs follow up HPI Details 63 y/o male presents to f/u hypertension , HLD with hx of CVA. Labs drawn 12/23/23. Reviewed labs with pt. Triglycerides 117. TC 113. LDL 57. HDL low at 33. He is on artovastatin 40mg. He is tolerating this well. Elevated fasting glucose of 135. Blood pressure today 108/60. He is on lisinopril 10mg daily. HUNTER-7 21, PHQ-9 13 today. PFSH Medical History High blood pressure High cholesterol Mini stroke Surgical History S/P cholecystectomy History of appendectomy Family History Father Colon cancer Social History Household Members: Family Both parents involved: No Caregiver staying overnight: No Housing: House Are you a primary customer care representative to a significant other at home: No Do you presently have visiting nurse or other home services: No 75 years or older and lives alone: No Alcohol intake: never Patient Tobacco Use Status: Never used Tobacco e-Cigarette/Vaping Use: Never Used Substance Use Type: Marijuana service: No Current occupational status: other Cognitive needs: No Hearing needs: No Vision needs: No Questionnaire PHQ-9 Over the last 2 weeks, how often have you been bothered by any of the following problems? 1. Little interest or pleasure in doing things: not at all 2. Feeling down, depressed, or hopeless: nearly every day 3. Trouble falling or staying asleep, or sleeping too much: nearly every day 4. Feeling tired or having little energy: nearly every day 5. Poor appetite or overeating: not at all 6. Feeling bad about yourself - or that you are a failure or have let yourself or your family down: several days 7. Trouble concentrating on things, such as reading the newspaper or watching television: not at all 8. Moving or speaking so slowly that other people could have noticed. Or the opposite - being so fidgety or restless that you have been moving around a lot more than usual: nearly every day 9. Thoughts that you would be better off or of hurting yourself in some way: not at all Total score: 13 Depression Screening Interpretation: Positive Depression Screening Done: Yes 53957 - PHQ-9 Billing: Yes Source: Developed by Drs. Memo Tam, Malika Mason, Darius Acuna and colleagues, with an educational micaela from [employer]. Thrive Questionnaire Date Thrive assessed: 07/24/23 HUNTER-7 AMB Questionnaire HUNTER-7 Date HUNTER - 7 assessed: 12/30/23 Feeling nervous, anxious, or on edge: 3 = Nearly every day Not being able to stop or control worryin = Nearly every day Worrying too much about different things: 3 = Nearly every day Trouble relaxin = Nearly every day Being so restless that it is hard to sit still: 3 = Nearly every day Becoming easily annoyed or irritable: 3 = Nearly every day Feeling afraid as if something awful might happen: 3 = Nearly every day Total HUNTER-7 score (0-4 normal; 5-9 mild; 10-14 moderate; 15-21 severe): 21 Source: Developed by Drs. Memo Tam, Malika Mason, Darius Acuna and colleagues, with an educational micaela from [employer]. HUNTER-7 Assessment Billing HUNTER-7 Assessment Tool: HUNTER-7 Assessment 19960 Review of Systems Const Denies chills, Denies fatigue, Denies fever(s), Denies headache(s) and Denies weakness ENT Denies dizziness and Denies headache(s) Card Denies dyspnea Resp Denies cough, Denies dyspnea, Denies wheezing and Denies other (shortness of breath) Musc Denies numbness and Denies tingling Neuro Denies dizziness, Denies headache(s), Denies numbness, Denies tingling and Denies weakness Psych Reports anxiety and Reports depression Endo Denies fatigue Aller/Immun Denies wheezing Physical exam (Primary Care) Vital Signs: Last Vital Signs Temp 98.5 F 12/30/23 12:01 Pulse 77 12/30/23 12:01 Resp 16 12/30/23 12:01 BP 108/60 12/30/23 12:01 Pulse Ox 97 12/30/23 12:01 Oxygen Delivery Method Room Air 12/30/23 12:01 BMI result Body Mass Index 28.6 Tobacco/Smoking Status: Tobacco use Status Tobacco use date assessed 07/24/23 12/30/23 11:54 Patient Tobacco Use Status Never used Tobacco 12/30/23 11:54 e-Cigarette/Vaping Use Never Used 12/30/23 11:54 PHQ-9: PHQ-9 Score PHQ-9: Total score 13 12/30/23 12:02 Depression Screening Interpretation: Positive Thrive Assessment: Date of Thrive Assessment Date Thrive assessed 07/24/23 12/30/23 11:54 Const General: well developed; No acute distress Nutritional Appearance: well nourished Orientation/consciousness: patient oriented x3 HENMT Head: Yes normocephalic and Yes atraumatic Eyes General: appearance normal, both eyes and all related structures Pupils: Equal, round and reactive pupils present EOM: EOMs intact bilaterally Resp Effort & Inspection: normal respiratory effort Auscultation: clear to auscultation bilaterally Cardio Rate: regular rate Rhythm: regular rhythm Heart sounds: S1 normal heart sound present, S2 normal heart sound present, no gallops, no murmurs and no rubs Neuro General: patient oriented x3 and gait normal Cranial nerves: Yes Equal, round and reactive pupils present Psych Affect: normal affect Assessment and Plan Assessment & Plan (1) High cholesterol: Code(s): E78.00 - Pure hypercholesterolemia, unspecified Plan: LDL?cholesterol?was?high?in?a?patient?with?history?of?CVA Added?atorvastatin LDL?cholesterol?now?below?70.??He?is?tolerating?medication?well Continue?atorvastatin?as?prescribed (2) High blood pressure: Code(s): I10 - Essential (primary) hypertension Plan: Blood?pressure?is?controlled.??Goal?is?less?than?130/80 Continue?current?medication (3) History of CVA (cerebrovascular accident): Code(s): Z86.73 - Personal history of transient ischemic attack (TIA), and cerebral infarction without residual deficits Plan: History?of?CVA?and?patient?has?some?lower?extremity?weakness?with?unsteady?gait. Also?some?difficulty?swallowing?and?changes?with?cognition Continue?using?cane Referred?to?neurology Continue aspirin?and?atorvastatin?and?blood?pressure?control (4) Depression with anxiety: Code(s): F41.8 - Other specified anxiety disorders Plan: Still?has?significant?depression Follow-up?with?therapist Continue?fluoxetine,?hydroxyzine Had?signific ant?dry?mouth?with?aripiprazole.??He?can?try?breaking?this?in?half?but?if?still? causing?problems?they?can?discontinue?it. (5) Difficulty swallowing: Code(s): R13.10 - Dysphagia, unspecified Plan: Ongoing?difficulty?swallowing Following?recommendations?made?by?COOLER DELIVERER?after?positive?MBS Referred?to?neurology Referred?to?ENT (6) Elevated fasting glucose: Code(s): R73.01 - Impaired fasting glucose Plan: Recent?fasting?blood?sugar?was?well?within?normal?range Will?continue?to?monitor (7) Elevated PSA: Code(s): R97.20 - Elevated prostate specific antigen [PSA] Plan: Follow-up?with?urology?as?recommended Orders: Referrals Neurology Referral R13.10 - Dysphagia, unspecified, R26.81 - Unsteadiness on feet, Z86.73 - Personal history of transient ischemic attack (TIA), and cerebral infarction without residual deficits Ear/Nose/Throat Referral R13.10 - Dysphagia, unspecified, Z86.73 - Personal history of transient ischemic attack (TIA), and cerebral infarction without residual deficits Coding Level of Care Code Est Pt Level 4 (70990) Diagnoses High cholesterol E78.00 High blood pressure I10 History of CVA (cerebrovascular accident) Z86.73 Depression with anxiety F41.8 Difficulty swallowing R13.10 Elevated fasting glucose R73.01 Elevated PSA R97.20 Additional Codes HUNTER-7 Assessment Billing - HUNTER-7 Assessment Tool: HUNTER-7 Assessment 03566 ([id number])
[2023-12-30 12:01] VITALS: BP 108/60; PULSE 77; RESP 16; TEMP 36.9; O2SAT 97; BMI 28.6
== END 2023-12-30 12:20 | disposition home or self-care (01) ==
PROVIDERS: PCP Family Medicine; Visit Provider Family Medicine
DX: E78.00 Pure hypercholesterolemia, unspecified (principal); I10 Essential (primary) hypertension; Z86.73 Personal history of transient ischemic attack (TIA), and cerebral infarction without residual deficits; F32.A Depression, unspecified; F41.8 Other specified anxiety disorders; R13.10 Dysphagia, unspecified; R73.01 Impaired fasting glucose; R97.20 Elevated prostate specific antigen [PSA]
CPT/HCPCS: 96127; 99214

== ENCOUNTER 2024-03-04 09:45 | Outpatient (REF) | payer OTHER, SELFPAY ==
[2024-03-04 12:22] LABS: Erythrocyte Sedimentation Rate 10 MM/HR (0-15)
[2024-03-04 12:51] LABS: Syphilis Screen Nonreactive (Nonreactive)
[2024-03-07 18:03] LABS: Lyme Abs Screen <0.90 index
== END 2024-03-04 09:46 | disposition home or self-care (01) ==
LOC: HO.LAB 09:45
PROVIDERS: Absent Provider Urology; PCP Family Medicine; Visit Provider Psychiatry & Neurology Neurology
DX: G93.40 Encephalopathy, unspecified (principal)
CPT/HCPCS: 36415; 85652; 86617; 86618; 86780

== ENCOUNTER 2024-03-30 10:37 | Outpatient (AMB) | payer OTHER, SELFPAY ==
--- NOTE | 2024-03-30 10:56 | MHC.PC.OV ---
Vital Signs 03/30/24 10:58 Height 5 ft 10 in Weight 207 lb 2 oz BMI 29.7 BP 114/64 Blood Pressure Location Rt brachial Position Sitting Respiration 16 Pulse 74 Pulse Source Pulse Oximeter Temp 97.8 F Temp Source Oral Pulse Oximetry (%) 97 Oxygen Delivery Method Room Air Intake Visit Reasons: f/u hypertension, chronic conditions Intake Note: f/u HTN and chronic conditions Plumbing Warehouse Helper Required: Yes Plumbing Warehouse Helper Language: Rotogravure Press Operator Name: [email or web address] ([id number]) Information Interpreted: non-clinical & clinical Retail Marketing Specialist: Present Accompanied by: Mother Allergies levofloxacin Allergy (Intermediate, Verified 03/30/24 10:57) Rash Tobacco use date assessed: 07/24/23 Dental Screening Dental Screen Date: 07/24/23 HPI f/u hypertension, chronic conditions HPI Details 64 y/o male presents to f/u hypertension, chronic conditions. Hx of CVA. Had seen Neurology for dizziness/syncope. Neurology felt?his?symptoms?were?not?entirely?consistent?with?CVA. CVA?verses?encephalopathy.??They?ran?lab?work?including?sed?rate,?treponemal?and?Lyme?titer.??These?were?negative. He?has?had?an?EEG?since?then.??I?do?not?have?the?report.??They?had?ordered?an?MRI?and?patient?says?has?not?had?that?done?yet. They?have?seen?the?neurologist?again?on?February??and?had?an?appointment?scheduled?on?the??which?they?missed. I?do?not?have?the?neurology?report?from?the?[facility] Medical History High blood pressure High cholesterol Mini stroke Surgical History S/P cholecystectomy History of appendectomy Family History Father Colon cancer Social History Household Members: Family Both parents involved: No Caregiver staying overnight: No Housing: House Are you a primary home health care physician to a significant other at home: No Do you presently have visiting nurse or other home services: No 75 years or older and lives alone: No Alcohol intake: never Patient Tobacco Use Status: Never used Tobacco e-Cigarette/Vaping Use: Never Used Substance Use Type: Marijuana service: No Current occupational status: other Cognitive needs: No Hearing needs: No Vision needs: No Questionnaire Thrive Questionnaire Date Thrive assessed: 07/24/23 HUNTER-7 AMB Questionnaire HUNTER-7 Date HUNTER - 7 assessed: 12/30/23 Source: Developed by Drs. Memo Tam, Malika Mason, Darius Acuna and colleagues, with an educational micaela from [employer]. Review of Systems Const Denies chills, Denies fatigue, Denies fever(s), Denies headache(s) and Denies weakness ENT Denies dizziness and Denies headache(s) Card Denies dyspnea Resp Denies cough, Denies dyspnea, Denies wheezing and Denies other (shortness of breath) Musc Denies numbness and Denies tingling Neuro Denies dizziness, Denies headache(s), Denies numbness, Denies tingling and Denies weakness Psych Denies anxiety and Denies depression Endo Denies fatigue Aller/Immun Denies wheezing Physical exam (Primary Care) Vital Signs: Last Vital Signs Temp 97.8 F 03/30/24 10:58 Pulse 74 03/30/24 10:58 Resp 16 03/30/24 10:58 BP 114/64 03/30/24 10:58 Pulse Ox 97 03/30/24 10:58 Oxygen Delivery Method Room Air 03/30/24 10:58 BMI result Body Mass Index 29.7 Tobacco/Smoking Status: Tobacco use Status Tobacco use date assessed 07/24/23 03/30/24 11:01 Patient Tobacco Use Status Never used Tobacco 03/30/24 11:01 e-Cigarette/Vaping Use Never Used 03/30/24 11:01 Thrive Assessment: Date of Thrive Assessment Date Thrive assessed 07/24/23 03/30/24 11:01 Const General: well developed; No acute distress Nutritional Appearance: well nourished Orientation/consciousness: patient oriented x3 HENMT Head: Yes normocephalic and Yes atraumatic Eyes General: appearance normal, both eyes and all related structures Pupils: Equal, round and reactive pupils present EOM: EOMs intact bilaterally Resp Effort & Inspection: normal respiratory effort Neuro General: patient oriented x3 and gait normal Cranial nerves: Yes Equal, round and reactive pupils present Psych Affect: normal affect Coding Level of Care Code Est Pt Level 3 (48693) Diagnoses High blood pressure I10 History of CVA (cerebrovascular accident) Z86.73 Difficulty swallowing R13.10 Assessment & Plan Assessment & Plan (1) High blood pressure: Code(s): I10 - Essential (primary) hypertension Category: Medical Plan: Blood?pressure?is?well?controlled.??Goal?is?less?than?130/80 Continue?current?medications (2) History of CVA (cerebrovascular accident): Code(s): Z86.73 - Personal history of transient ischemic attack (TIA), and cerebral infarction without residual deficits Category: Medical Plan: Urology?was?not?clear?that?patient's symptoms?were?consistent?with?stroke?and?are?performing?additional?workup. I?do?not?have?most?recent?neurology?note?and?will?request?this. They?also?performed?in?he?e.g.?and?I?do?not?have?the?report?or?results. They?also?ordered?an?MRI?and?patient?says?this?has?not?been?performed?yet. Will?request?Neurology?notes. Advised?patient?to?follow-up?with?Neurology?and?let?them?know?that?MRI?is?not?yet?scheduled. Currently?patient?is?stable (3) Difficulty swallowing: Code(s): R13.10 - Dysphagia, unspecified Category: Medical Plan: Stable Continue?strategies?recommended?by?speech?language?pathology
[2024-03-30 10:58] VITALS: BP 114/64; PULSE 74; RESP 16; TEMP 36.6; O2SAT 97; BMI 29.7
== END 2024-03-30 11:26 | disposition home or self-care (01) ==
PROVIDERS: PCP Family Medicine; Visit Provider Family Medicine
DX: I10 Essential (primary) hypertension (principal); Z86.73 Personal history of transient ischemic attack (TIA), and cerebral infarction without residual deficits; R13.10 Dysphagia, unspecified

== ENCOUNTER → 2024-03-30 10:37 | Outpatient (BNVA) | payer OTHER, SELFPAY | PROVIDERS: PCP Family Medicine; Visit Provider Family Medicine | DX: I10 Essential (primary) hypertension (principal); R13.10 Dysphagia, unspecified; Z86.73 Personal history of transient ischemic attack (TIA), and cerebral infarction without residual deficits | CPT/HCPCS: 99212 ==

== ENCOUNTER 2024-07-11 15:22 | Outpatient (AMB) | payer OTHER, SELFPAY ==
--- NOTE | 2024-07-11 15:38 | A.OFFPC_ITS ---
Vital Signs 07/11/24 15:46 Height 5 ft 10 in Weight 210 lb 2 oz BMI 30.1 BP 138/70 Blood Pressure Location Lt brachial Position Sitting Respiration 12 Pulse 77 Pulse Source Pulse Oximeter Temp 98.6 F Temp Source Oral Pulse Oximetry (%) 98 Oxygen Delivery Method Room Air Intake Visit Reasons: f/u HTN, chronic conditions Intake Note: patient is scheduled to follow up on htn and chronic conditions Agronomy Manager Required: Yes Agronomy Manager Language: Korean Allergies levofloxacin Allergy (Intermediate, Verified 07/11/24 15:45) Rash Tobacco use date assessed: 07/24/23 Dental Screening Dental Screen Date: 07/24/23 HPI f/u HTN, chronic conditions HPI Details 64 y/o male presents to f/u HTN, chronic conditions. Blood pressure today 138/70, 77p. He is on lisinopril 10mg. PFSH Medical History High blood pressure High cholesterol Mini stroke Surgical History S/P cholecystectomy History of appendectomy Family History Father Colon cancer Social History Household Members: Family Both parents involved: No Caregiver staying overnight: No Housing: House Are you a primary acute care nurse practitioner to a significant other at home: No Do you presently have visiting nurse or other home services: No 75 years or older and lives alone: No Alcohol intake: never Patient Tobacco Use Status: Never used Tobacco e-Cigarette/Vaping Use: Never Used Substance Use Type: Marijuana service: No Current occupational status: other Cognitive needs: No Hearing needs: No Vision needs: No Questionnaire Thrive Questionnaire Date Thrive assessed: 07/24/23 HUNTER-7 AMB Questionnaire HUNTER-7 Date HUNTER - 7 assessed: 12/30/23 Source: Developed by Drs. Memo Tam, Malika Mason, Darius Acuna and colleagues, with an educational micaela from [employer]. Review of Systems Const Denies chills, Denies fatigue, Denies fever(s), Denies headache(s) and Denies weakness ENT Denies dizziness and Denies headache(s) Card Denies dyspnea Resp Denies cough, Denies dyspnea, Denies wheezing and Denies other (shortness of breath) Musc Denies numbness and Denies tingling Neuro Denies dizziness, Denies headache(s), Denies numbness, Denies tingling and Denies weakness Psych Denies anxiety and Denies depression Endo Denies fatigue Aller/Immun Denies wheezing Physical exam (Primary Care) Vital Signs: Last Vital Signs Temp 98.6 F 07/11/24 15:46 Pulse 77 07/11/24 15:46 Resp 12 07/11/24 15:46 BP 138/70 07/11/24 15:46 Pulse Ox 98 07/11/24 15:46 Oxygen Delivery Method Room Air 07/11/24 15:46 BMI result Body Mass Index 30.1 Tobacco/Smoking Status: Tobacco use Status Tobacco use date assessed 07/24/23 07/11/24 15:39 Patient Tobacco Use Status Never used Tobacco 07/11/24 15:39 e-Cigarette/Vaping Use Never Used 07/11/24 15:39 Thrive Assessment: Date of Thrive Assessment Date Thrive assessed 07/24/23 07/11/24 15:39 Const General: well developed; No acute distress Nutritional Appearance: well nourished Orientation/consciousness: patient oriented x3 HENMT Head: Yes normocephalic and Yes atraumatic Eyes General: appearance normal, both eyes and all related structures Pupils: Equal, round and reactive pupils present EOM: EOMs intact bilaterally Resp Effort & Inspection: normal respiratory effort Neuro General: patient oriented x3 and gait normal Cranial nerves: Yes Equal, round and reactive pupils present Psych Affect: normal affect Coding Level of Care Code Est Pt Level 3 (44345) Diagnoses High blood pressure I10 Sleep apnea G47.30 History of CVA (cerebrovascular accident) Z86.73 Assessment & Plan Assessment & Plan (1) High blood pressure: Code(s): I10 - Essential (primary) hypertension Category: Medical Plan: Blood?pressure?is?a?little?high ?for?goal?of?less?than?130/80?though?it?was?better?controlled?his?last?visit. Will?increase?lisinopril?from?10?mg?daily?to?20?daily (2) Sleep apnea: Code(s): G47.30 - Sleep apnea, unspecified Category: Medical Plan: Patient?notes?a?diagnosis?of?sleep?apnea?in?the?past?and?difficulty?sleeping. Referred?back?to?Sleep?Medicine (3) History of CVA (cerebrovascular accident): Code(s): Z86.73 - Personal history of transient ischemic attack (TIA), and cerebral infarction without residual deficits Category: Medical Plan: History?of?CVA. Keep?blood?pressure?well?controlled.??Continue?atorvastatin?aspirin He?is?followed?by?Neurology.??Had?requested?most?recent?note?and?have?not?receiv ed?yet.??Gaetano l?request?this?again.??They?have?planning?an?MRI?with?patient?says?he?has?not?go tten?done.
[2024-07-11 15:46] VITALS: BP 138/70; PULSE 77; RESP 12; TEMP 37; O2SAT 98; BMI 30.1
== END 2024-07-11 16:27 | disposition home or self-care (01) ==
LOC: HO.HMCFM 15:23
PROVIDERS: PCP Family Medicine; Visit Provider Family Medicine
DX: I10 Essential (primary) hypertension (principal); G47.30 Sleep apnea, unspecified; Z86.73 Personal history of transient ischemic attack (TIA), and cerebral infarction without residual deficits

== ENCOUNTER → 2024-07-11 15:22 | Outpatient (BNVA) | payer OTHER, SELFPAY | PROVIDERS: PCP Family Medicine; Visit Provider Family Medicine | DX: I10 Essential (primary) hypertension (principal); G47.30 Sleep apnea, unspecified; Z86.73 Personal history of transient ischemic attack (TIA), and cerebral infarction without residual deficits | CPT/HCPCS: 99212 ==

== ENCOUNTER 2024-07-15 09:28 | Outpatient (REF) | payer OTHER, SELFPAY ==
[2024-07-15 11:10] LABS: PSA,Total (Free>4and<10) 2.16 ng/mL (0.00-4.00)
== END 2024-07-15 09:29 | disposition home or self-care (01) ==
LOC: HO.HMGCLDS 09:28
PROVIDERS: PCP Family Medicine; Visit Provider Nurse Practitioner Family
DX: R97.20 Elevated prostate specific antigen [PSA] (principal)
CPT/HCPCS: 36415; 84153

== ENCOUNTER 2024-07-21 12:52 | Outpatient (AMB) | payer OTHER, SELFPAY ==
--- NOTE | 2024-07-21 13:03 | A.OFFVIS_ITS ---
Intake Visit Reasons: 6m/PSA Intake Note: Patient presents today for follow up on: Elevated PSA and PSA lab results PSA: 2.16 Urology Med: Finasteride Antibiotic Allergy: Levofloxacin Blood Thinner:Aspirin Forepart Reducer Required: Yes Forepart Reducer Language: Final Installer Inspector Services: Forepart Reducer Present Forepart Reducer Name: [id number] Accompanied by: Unknown Allergies levofloxacin Allergy (Intermediate, Verified 07/21/24 13:25) Rash Medication List - Last Reconciled 07/21/24 by VAIHSALI Sarmiento- aripiprazole (Abilify) 2 mg PO BEDTIME 30 days aspirin (Adult Aspirin Regimen) 81 mg PO DAILY 90 days atorvastatin 40 mg PO BEDTIME 90 days cane Daily, As directed, 999 days finasteride 5 mg PO DAILY 90 days lisinopril 20 mg PO DAILY 90 days omeprazole 40 mg PO DAILY 90 days HPI Comments Details: Fercho is a very pleasant 64-year-old Maori-speaking male patient of Dr. Yates. He has a past medical history of CVA, hypercholesteremia, and hypertension. He presents to the office today for follow-up of his elevated PSA. Of note, patient underwent prostate biopsy with Dr. Vasquez 11/10 that noted chronic inflammation in the setting of BPH at which time he was started on finasteride. In discussion with the patient today he reports to be doing and feeling well. He denies having had any bothersome urinary issues or concerns since his last office visit here. He reports compliance with finasteride as prescribed. He denies urinary urgency, urinary frequency, incontinence, nocturia, hematuria, dysuria, foul smelling urine, changes to urinary stream, flank pain, fever, and or chills. He is happy with his current voiding parameters. Recent PSA results reviewed with the patient today as noted and trended below: PSA: 08/11 6.3, 07/12 2.2 In office urinalysis results reviewed with the patient today. He otherwise offers no other issues or concerns at this time. [facility] Medical History High blood pressure High cholesterol Mini stroke Surgical History S/P cholecystectomy History of appendectomy Family History Father Colon cancer Social History Household Members: Family Both parents involved: No Caregiver staying overnight: No Housing: House Are you a primary hearing care practitioner to a significant other at home: No Do you presently have visiting nurse or other home services: No 75 years or older and lives alone: No Alcohol intake: never Patient Tobacco Use Status: Never used Tobacco e-Cigarette/Vaping Use: Never Used Substance Use Type: Marijuana service: No Current occupational status: other Cognitive needs: No Hearing needs: No Vision needs: No Review of Systems Const All systems reviewed & are unremarkable except as noted in HPI and below Physical Exam Const General: cooperative, healthy appearing, comfortable, no acute distress, well developed, alert and awake Orientation/consciousness: patient oriented x3 Limitations: language barrier and ambulation with cane HEENT Head: Yes normal to inspection, Yes normocephalic and Yes atraumatic Ears: hearing grossly normal bilaterally Eyes General: appearance normal, both eyes and all related structures Neck Neck: Yes normal visual inspection and Yes trachea midline Chest Chest palpation & inspection: normal inspection of the chest Resp Effort & Inspection: normal respiratory effort and able to speak in complete sentences Cardio Rate: regular rate GI Inspection: Yes normal to inspection General: Yes no CVA tenderness Back/Spine/Pelvis Back: no CVA tenderness Skin General skin exam: no rashes or lesions noted Neuro General: patient oriented x3 Extrem General: Yes normal to inspection Psych Appearance: grossly normal and well kempt Mental Status: mental status grossly normal Speech and movement: Normal speech and movement present and Clear speech present Affect: normal affect Attitude: cooperative Thought process: Normal thought process present Thought content: Normal thought content present Insight: Fair insight present (Psych) Judgement: Fair judgement present (Psych) Results AMB Urinalysis, Automated UA Leukoctes 0 Izaiah/uL Last Edit by Jolene Ball on 07/21/24 13:12 UA Nitrite Last Edit by Jolene Ball on 07/21/24 13:12 UA Urobilinogen 0.2 mg/dL Last Edit by Jolene Ball on 07/21/24 13:12 UA Protein 15 mg/dL Last Edit by Jolene Ball on 07/21/24 13:12 UA pH 6.0 Last Edit by Jolene Ball on 07/21/24 13:12 UA Blood 0 Jhonny/uL Last Edit by Jolene Ball on 07/21/24 13:12 UA Specific Mes[place] 1.015 Last Edit by Jolene Ball on 07/21/24 13:12 UA Ketone Last Edit by Jolene Ball on 07/21/24 13:12 UA Bilirubin 0 mg/dL Last Edit by Jolene Blal on 07/21/24 13:12 UA Glucose 0 mg/dL Last Edit by Jolene Ball on 07/21/24 13:12 Results Reviewed Results Reviewed: Laboratory Last Values Urine pH (Auto) 6.0 07/21/24 13:11 Specific Mes[place] (Auto) 1.015 07/21/24 13:11 Urine Protein (Auto) 15 mg/dL 07/21/24 13:11 Glucose (UA)(Auto) 0 mg/dL 07/21/24 13:11 Urine Blood (Auto) 0 Jhonny/uL 07/21/24 13:11 Urine Bilirubin (Auto) 0 mg/dL 07/21/24 13:11 Urine Urobilinogen (Auto) 0.2 mg/dL 07/21/24 13:11 Leukocyte Esterase (Auto) 0 Izaiah/uL 07/21/24 13:11 Assessment & Plan Assessment & Plan (1) Elevated PSA: Code(s): R97.20 - Elevated prostate specific antigen [PSA] Category: Medical Plan In office urinalysis results reviewed with the patient today; as noted above. Recent PSA results reviewed with the patient today; as noted above. Continue finasteride as discussed and prescribed. He currently denies any bothersome urinary issues or concerns. He reports be happy with current voiding parameters. We discussed at length potential causes of elevated PSA. Will continue with surveillance monitoring. Will obtain PSA in 6 months. Follow-up in 6 months with PSA or sooner with any issues, concerns, and or questions. Orders: Orders Prostate Specific Antigen 6 Months R97.20 - Elevated prostate specific antigen [PSA] PSA,Total (Free>4and<10) 07/15/24 R97.20 - Elevated prostate specific antigen [PSA] AMB Urinalysis Automated Today Z13.9 - Encounter for screening, unspecified Medications: Refilled finasteride 5 mg PO DAILY 90 days 90 tabs 1RF N13.8 - Other obstructive and reflux uropathy, N40.1 - Benign prostatic hyperplasia with lower urinary tract symptoms, R33.9 - Retention of urine, unspecified, R97.20 - Elevated prostate specific antigen [PSA] Patient Instructions: The patient had an opportunity to ask questions regarding the treatment plan. All questions were answered. Physical exam, labs, and imaging were discussed and reviewed in detail. As well as risks, benefits, and discussion of treatment choices. No major barriers to understanding were identified. The patient expressed understanding and agreement with the above treatment plan. The patient was made aware they should contact our office by phone for worsening of their current condition, the appearance of new symptoms, or with any questions or concerns. Compliance is encouraged with any medications and follow up testing that is ordered. It is a privilege to be allowed the opportunity to participate in? your urological care.? Again, if you have any questions or concerns If you have any questions or concerns please do not hesitate to contact me. The office is [phone]. This note is constructed using voice recognition software. While every effort has been made to ensure accuracy director life errors may have been included. Yours sincerely, QUIRINO Sarmiento Coding Level of Care Code Est Pt Level 3 (29121) Complex EM visit Add On G2211 Diagnoses Elevated PSA R97.20
== END 2024-07-21 13:25 | disposition home or self-care (01) ==
LOC: HO.HUSH 12:52
PROVIDERS: PCP Family Medicine; Visit Provider Nurse Practitioner Family
DX: R97.20 Elevated prostate specific antigen [PSA] (principal); Z13.9 Encounter for screening, unspecified
CPT/HCPCS: 99213; G2211

== ENCOUNTER → 2024-07-21 12:52 | Outpatient (BNVA) | payer OTHER, SELFPAY | PROVIDERS: PCP Family Medicine; Visit Provider Nurse Practitioner Family | DX: N40.1 Benign prostatic hyperplasia with lower urinary tract symptoms (principal); N13.8 Other obstructive and reflux uropathy; R33.8 Other retention of urine; R97.20 Elevated prostate specific antigen [PSA]; Z86.73 Personal history of transient ischemic attack (TIA), and cerebral infarction without residual deficits | CPT/HCPCS: 81003; 99212 ==

== ENCOUNTER 2024-08-30 14:28 | Outpatient (AMB) | payer OTHER, SELFPAY ==
--- NOTE | 2024-08-30 14:30 | A.OFFVIS_ITS ---
Vital Signs 3 08/30/24 14:32 Height 5 ft 10 in Weight 208 lb 15.971 oz BMI 30.0 BP 119/66 Blood Pressure Location Lt brachial Position Sitting Pulse 93 Pulse Source Pulse Oximeter Pulse Oximetry (%) 96 Oxygen Delivery Method Room Air Intake Visit Reasons: Colonoscopy screening Combat Systems Operator Mine Warfare Required: Yes Combat Systems Operator Mine Warfare Services: Combat Systems Operator Mine Warfare Offered & Declined Combat Systems Operator Mine Warfare Name: daughter Allergies levofloxacin Allergy (Intermediate, Verified 08/30/24 14:36) Rash HPI HPI Colonoscopy screening: Details: 64-YEAR-OLD MALE HERE for preprocedural meeting to discuss a screening colonoscopy. He is referred by Ryley Yatse. PMX MARGO High cholesterol History of CVA Hypertension History of syncope Unsteady gait Depression with anxiety * SURGICAL HISTORY Cholecystectomy Appendectomy * ALLERGIES Levaquin - facial swelling, hives * [employer] LABS: needs labs TODAY'S VISIT Citizen of the [place] #Alisia Feliciano He had a prior negative colonoscopy many years ago somewhere in [place]. He denies any bowel or upper GI problems. He has MARGO but not other cardiac or respiratory problems. No ID problems. There are no prior problems with anesthesia or sedation. THere is no known FHX of crc or polyps. [facility] Medical History High blood pressure High cholesterol Mini stroke Surgical History S/P cholecystectomy History of appendectomy Family History Father Colon cancer Social History Household Members: Family Both parents involved: No Caregiver staying overnight: No Housing: House Are you a primary health care assistant to a significant other at home: No Do you presently have visiting nurse or other home services: No 75 years or older and lives alone: No Alcohol intake: never Patient Tobacco Use Status: Never used Tobacco e-Cigarette/Vaping Use: Never Used Substance Use Type: Marijuana service: No Current occupational status: other Cognitive needs: No Hearing needs: No Vision needs: No Review of Systems ENT Reports Normal hearing present Neuro Reports Normal hearing present and Denies Abnormal speech present Physical Exam Const General: cooperative, no acute distress, well developed and well groomed Nutritional Appearance: well nourished and obese Orientation/consciousness: oriented to person, oriented to place and oriented to time Limitations: language barrier and ambulation with cane HEENT Head: Yes normocephalic and Yes atraumatic Eyes General: appearance normal, both eyes and all related structures Pupils: Equal, round and reactive pupils present Neck Neck: Yes normal visual inspection and Yes no lymphadenopathy Thyroid: Thyroid normal Resp Effort & Inspection: normal respiratory effort and able to speak in complete sentences Auscultation: clear to auscultation bilaterally Cardio Rate: regular rate Rhythm: regular rhythm Heart sounds: Normal, physiologic split S2 sound present Peripheral pulses: radial pulses present and posterior tibial pulses present GI Inspection: No distended, No Abdominal panniculus present and Yes obesity Palpation (GI): Soft to palpation, nontender, no guarding, not rigid and No hepatosplenomegaly present Percussion: Yes normal to percussion Auscultation: normal bowel sounds Rectal Exam - Male: Yes deferred Abdomen image: 2 1. surgical scars 2. 3. Skin General skin exam: no rashes or lesions noted, turgor normal, skin not dry, no jaundice, No spider nevi and no striae Rashes: no rashes Nails: normal Neuro General: oriented to person, oriented to place and oriented to time Cranial nerves: Yes Equal, round and reactive pupils present and Yes Normal hearing present Speech: No Abnormal speech present Extrem General: Yes normal to inspection, No clubbing, No cyanosis and Yes edema (very mild edema ankles) Psych Appearance: grossly normal and well kempt Mental Status: mental status grossly normal Speech and movement: Normal speech and movement present Affect: normal affect Attitude: cooperative Thought process: Normal thought process present and not confabulating Thought content: Normal thought content present Insight: Limited insight present (Psych) Judgement: Limited judgement present (Psych) Assessment & Plan Assessment & Plan (1) Sleep apnea: Code(s): G47.30 - Sleep apnea, unspecified Category: Medical (2) Pre-op examination: Code(s): Z01.818 - Encounter for other preprocedural examination Category: Medical Plan Citizen of the [place] #[place] Live He had a prior negative colonoscopy many years ago somewhere in [place]. He denies any bowel or upper GI problems. He has MARGO but not other cardiac or respiratory problems. No ID problems. There are no prior problems with anesthesia or sedation. THere is no known FHX of crc or polyps. Orders: Orders 2 Comprehensive Met. Panel Today G47.30 - Sleep apnea, unspecified, Z01.818 - Encounter for other preprocedural examination Colonoscopy - GI Use Only Today G47.30 - Sleep apnea, unspecified, Z01.818 - Encounter for other preprocedural examination Complete Blood Count Auto Diff Today G47.30 - Sleep apnea, unspecified, Z01.818 - Encounter for other preprocedural examination Medications: New 2 sodium,potassium,mag sulfates 17.5-3.13-1.6 gram (Suprep Bowel Prep Kit) 480 mL orally; FOR COLONOSCOPY PREP 354 mL 0RF Coding Level of Care Code New Pt Level 3 (31447) Diagnoses Sleep apnea G47.30 Pre-op examination Z01.818
[2024-08-30 14:32] VITALS: BP 119/66; PULSE 93; O2SAT 96
== END 2024-08-30 15:05 | disposition home or self-care (01) ==
LOC: HO.HGI 14:29
PROVIDERS: PCP Family Medicine; Visit Provider Nurse Practitioner
DX: Z01.818 Encounter for other preprocedural examination (principal); Z12.11 Encounter for screening for malignant neoplasm of colon; G47.30 Sleep apnea, unspecified
CPT/HCPCS: 99202

== ENCOUNTER 2024-08-30 14:28 | Outpatient (REF) | payer OTHER, SELFPAY ==
[2024-08-30 15:17] LABS: MANUAL DIFF FLAG NO
[2024-08-30 15:35] LABS: Basophils Percent Auto 0.4 % (0-2); Eosinophils Absolute Auto 0.6 X10*3/uL (0.0-0.4); Eosinophils Percent Auto 5.2 % (0-4); Hematocrit 42.6 % (42.0-52.0); Hemoglobin 14.4 g/dl (14.0-18.0); Imm Gran Abs Auto 0.05 X10*3/uL (0.00-0.03); Imm Gran Pct Auto 0.5 % (0.0-0.4); Lymphocytes Absolute Auto 2.6 X10*3/uL (1.2-4.9); Mean Corpuscular HGB Conc 33.8 g/dl (31.0-36.0); Mean Corpuscular Hemoglobin 30.4 pg (27.0-33.0); Mean Corpuscular Volume 89.9 fL (80.0-98.0); Mean Platelet Volume 9.8 fL (9.4-12.4); Neutrophils Absolute Auto 6.7 x10*3/uL (2.0-8.3); Neutrophils Percent Auto 60.9 % (45-73); Platelet Count 335 X10*3/uL (160-400); Red Blood Count 4.74 X10*6/uL (4.60-5.80); Red Cell Distribution Width 13.2 % (11.0-16.0)
[2024-08-30 16:13] LABS: Alanine Aminotransferase 28 U/L (0-40); Anion Gap 12 (12-20); Aspartate Amino Transferase 25 U/L (5-37); Bilirubin Total 0.3 mg/dL (0.0-1.0); Blood Urea Nitrogen 12 mg/dL (9-16); Calcium 9.2 mg/dL (8.4-10.2); Carbon Dioxide 24 mmol/L (22-29); Chloride 106 mmol/L (96-108); Estimated Glomerular Filt Rate > 60; Glucose Random 103 mg/dL (60-115); Potassium 4.3 mmol/L (3.3-5.1); Sodium 138 mmol/L (135-145); Total Protein 7.7 g/dL (6.5-8.0)
[2024-08-30 17:42] LABS: Alkaline Phosphatase 79 U/L (39-117)
== END 2024-08-30 14:29 | disposition home or self-care (01) ==
LOC: HO.LAB 14:28
PROVIDERS: PCP Family Medicine; Visit Provider Nurse Practitioner
DX: Z01.818 Encounter for other preprocedural examination (principal); G47.30 Sleep apnea, unspecified
CPT/HCPCS: 36415; 80053; 85025; 99202

== ENCOUNTER 2024-09-09 09:57 | Outpatient (AMB) | payer OTHER, SELFPAY ==
--- NOTE | 2024-09-09 10:01 | MHC.OFFVIS ---
Vital Signs 09/09/24 10:02 Height 5 ft 10 in Weight 209 lb 8 oz BMI 30.1 BP 130/70 Blood Pressure Location Lt brachial Position Sitting Pulse 71 Pulse Source Pulse Oximeter Pulse Oximetry (%) 96 Oxygen Delivery Method Room Air Intake Visit Reasons: INP- MARGO Intake Note: Patient presents W[employer] BLEACH[employer] MARGO. Patient notes a diagnosis of sleep apnea in the past and difficulty sleeping. Patient states that he attended a sleep study around 2018 with [facility] and was utilizing a CPAP for approximately 6 months before losing his machine on vacation. He has exhibited signs of snoring and gasping for air throughout the night. Internet Sales Associate Required: Yes Internet Sales Associate Services: Internet Sales Associate Offered & Declined Internet Sales Associate Name: Daughter Information Interpreted: non-clinical & clinical Warp Knit Operator: Warp Knit Operator Present Accompanied by: Spouse Allergies levofloxacin Allergy (Intermediate, Verified 09/09/24 10:10) Rash HPI Comments Details: 64 y/o male, r. hand h/o syncope and MARGO referred to us by his PCP for evaluation of sleep apnea. His Vianey and daughter Alessia help with history today. History of CVA September 2023 he had syncope and never went to the hospital, he is on statin and aspirin. HST in 2018 he was diagnosed with MARGO at [facility] however lost his cpap machine when he went on vacation. He goes to bed at 11pm, 6:30am with one bathroom breaks, and his c/o of his loud snoring, talking and gasping for air at night. Since his episode of syncope in September 2023, he has difficulty swallowing his food, acid reflux, slurred speech, drooling, and left sided weakness. His left eye lid is drooping and left side of the body, upper and lower extremities are weaker than the right side. His mood has been depressed, he generally used to be a stable person, however now he is anxious, irritable with spontaneous elevated mood. His says his memory is poor he forgets a lot of things, and will not remember where he put things, he remembers names and faces, he is no longer driving and is quieter. Headaches about 2-3 times per week, lasts 30min to 1hour in the frontal area locally does not migrate, he has photophobia/ phonophobia, smells do not trigger headaches. He does not recall when his vision was last evaluated. His mood tends to be low, he sees his therapist 2x a month and his psychiatrist every 3 months for abilify. He denies RLS, symptoms such as numbness, pins, needles, and burning pain. He doesn't walk, as he gets tired very easily and he doesn't like to lift his arms. His diet is okay. [facility] Medical History Laboratory exam ordered as part of routine general medical examination Screening for prostate cancer Screening for colon cancer Adult general medical exam High blood pressure High cholesterol Mini stroke Surgical History S/P cholecystectomy History of appendectomy Family History Father Colon cancer Social History Household Members: Family Both parents involved: No Caregiver staying overnight: No Housing: House Are you a primary personal care worker to a significant other at home: No Do you presently have visiting nurse or other home services: No 75 years or older and lives alone: No Alcohol intake: never Patient Tobacco Use Status: Never used Tobacco e-Cigarette/Vaping Use: Never Used Substance Use Type: Marijuana service: No Current occupational status: other Cognitive needs: No Hearing needs: No Vision needs: No Physical Exam Vital Signs: Last Vital Signs Pulse 71 09/09/24 10:02 BP 130/70 09/09/24 10:02 Pulse Ox 96 09/09/24 10:02 Oxygen Delivery Method Room Air 09/09/24 10:02 BMI result Body Mass Index 30.1 Const General: cooperative, comfortable and no acute distress Nutritional Appearance: average body habitus Orientation/consciousness: patient oriented x3 Limitations: language barrier HEENT Head images: 1. left eye lid droop. 2. left lip assymetry Face and sinus: Yes other (assymetric facial expression drooping of L. lid and L. lip.) Mouth: lip abnormal and tongue abnormal (points to the left) Teeth and gingiva: other ([place] score of 3) Throat image: 1. not visible uvula is obstructed by tongue Eyes Pupils: Equal, round and reactive pupils present Neck Neck images: 1. unable to extend the neck limited extension Resp Effort & Inspection: normal respiratory effort and able to speak in complete sentences Neuro Other: L. Lid droop, L. lip droop, facial drooping left side, LUE / LLE weaker than right side. LUE hand movements are slower than right and gets confused with finger to thumb touch. General: patient oriented x3 and moves all extremities Cranial nerves: Yes Facial sensation intact/muscles of mastication intact, Yes Equal, round and reactive pupils present, Yes Normal accommodation reflex present, Yes Normal facial strength present, Yes Ability to bilaterally rotate head present and Yes Ability to bilaterally elevate shoulders present Speech: Other speech findings present (Neuro) (does not talk unable to evaluate not sure if it is a language barrier.) Gait exam (Neuro): Normal gait present, Assistive device used and Other gait observations present (uses a cane) Motor exam (neuro): 5/5 motor strength present throughout (Left side is 3/5 Right side is 5/5), Normal motor muscle tone present throughout and Abnormal motor strength present Deep tendon reflexes (DTR's): Right triceps reflex intensity grade: 2+, Left triceps reflex intensity grade: 2+, Rt Biceps (C5, C6): 2+, Left biceps reflex intensity grade: 2+, Right brachioradialis reflex intensity grade: 2+, Left brachioradialis reflex intensity grade: 2+, Right patellar reflex intensity grade: 3+, Left patellar reflex intensity grade: 3+, Right ankle reflex intensity grade: 3+ and Left ankle reflex intensity grade: 3+ Coordination: [id number] test normal Psych Appearance: grossly normal Affect: normal affect Results Reviewed Results Reviewed: August 2024 Labs reviewed with patient, LDL is elevated, HDL is low. EEG 02/2024 no sharp spikes or paroxysmal tendency. 01/2024 Viral etiology/ syphillis /Lyme and Encephalopathy ruled out. Assessment & Plan Assessment & Plan (1) Fatigue due to sleep pattern disturbance: Code(s): R53.83 - Other fatigue; G47.9 - Sleep disorder, unspecified Category: Medical (2) Loud snoring: Code(s): R06.83 - Snoring Category: Medical (3) Worsening headaches: Code(s): R51.9 - Headache, unspecified Category: Medical (4) Left-sided weakness: Code(s): R53.1 - Weakness Category: Medical (5) Unsteady gait: Code(s): R26.81 - Unsteadiness on feet Category: Medical (6) History of CVA (cerebrovascular accident): Code(s): Z86.73 - Personal history of transient ischemic attack (TIA), and cerebral infarction without residual deficits Category: Medical Plan MARGO will evaluate with HST L. sided weakness with fatigue, labs are normal HDL is low and LDL cholesterol is high. PT for Unsteadiness on feet with Gait balance difficulties, CT scan to evaluate CVA Headaches sumatriptan 50mg po daily at the onset of headache may take one more within 2 hours of the first if the headache does not go away. Do not exceed 100mg po within 24 hours. May start 400mg magnesium at bedtime and hold for loose stools. F/U in 3 months Orders: Orders RT home sleep study Today G47.19 - Other hypersomnia, G47.9 - Sleep disorder, unspecified, R06.83 - Snoring, R53.83 - Other fatigue CT head/brain wo IV con Today R53.1 - Weakness PT Evaluation and Treatment Today R26.81 - Unsteadiness on feet, R53.1 - Weakness, Z86.73 - Personal history of transient ischemic attack (TIA), and cerebral infarction without residual deficits Medications: New sumatriptan succinate may take one tablet at the onset of headache and may take one more tablet within 2-4 hours, do not take more than 100mg within 24 hours. 50 mg PO Q2-4H 30 days 14 tabs 0RF headaches MDD 100mg R51.9 - Headache, unspecified Patient Instructions: Sleep Hygiene provided: set a scheduled bedtime and wake time to help regulate the circadian rhythm and balance the release of pituitary hormones. Sleep in a dark room, temperatures below 68 degrees, and no devices n bed. Limit caffeinated products 6 hours prior to bed, and limit fluids 2-4 hours prior to bed. Gentle night yoga, diffusing essential oils, and playing soft music can be relaxing. Coding Level of Care Code New Pt Level 4 (98963) Complex EM visit Add On G2211 Diagnoses Fatigue due to sleep pattern disturbance R53.83; G47.9 Loud snoring R06.83 Worsening headaches R51.9 Left-sided weakness R53.1 Unsteady gait R26.81 History of CVA (cerebrovascular accident) Z86.73 Time Spent (min) 45 Comment evaluation Sleep Questionnaire Difficulty falling asleep: Yes Difficulty staying asleep?: Yes Number of arousals: 1-2 Snoring: Yes Witnessed apneas: Yes Gasping arousals: Yes Nocturia: No GERD: Yes Vivid dreams: Yes Acting out dreams: Yes Abnormal behavior in sleep: No Abnormal movements in sleep: Yes Morning headaches: Yes Excessive daytime sleepiness: Yes Daytime naps: No Restless legs: No Hallucinations: No Sleep paralysis: No Drop attacks: Yes (syncope, not seizures) Sleep Study: Yes CPAP: Yes
[2024-09-09 10:02] VITALS: BP 130/70; PULSE 71; O2SAT 96; BMI 30.1
== END 2024-09-09 11:11 | disposition home or self-care (01) ==
LOC: HO.HSMS 09:58
PROVIDERS: PCP Family Medicine; Visit Provider Physician Assistant Medical
DX: R53.83 Other fatigue (principal); G47.9 Sleep disorder, unspecified; R06.83 Snoring; R51.9 Headache, unspecified; R53.1 Weakness; R26.81 Unsteadiness on feet; Z86.73 Personal history of transient ischemic attack (TIA), and cerebral infarction without residual deficits
CPT/HCPCS: 99204; G2211

== ENCOUNTER → 2024-09-09 09:57 | Outpatient (BNVA) | payer OTHER, SELFPAY | PROVIDERS: PCP Family Medicine; Visit Provider Physician Assistant Medical | DX: R53.83 Other fatigue (principal); R06.83 Snoring; R51.9 Headache, unspecified; R53.1 Weakness; R26.81 Unsteadiness on feet; G47.9 Sleep disorder, unspecified; Z86.73 Personal history of transient ischemic attack (TIA), and cerebral infarction without residual deficits | CPT/HCPCS: 99202 ==

== ENCOUNTER 2024-11-15 16:23 | Outpatient (REF) | payer OTHER, SELFPAY ==
--- NOTE | ~2024-11-15 | CT_ITS ---
CLINICAL HISTORY: R53.1 - Weakness --- Additional Notes or Special Instructions: h o cva and syncope September 2023 Exam: CT Head without IV contrast Comparison: None Findings: No acute intracranial hemorrhage, mass, midline shift or hydrocephalus. Barker-white matter differentiation is maintained. Multiple subcentimeter hypodensities scattered in bilateral basal ganglia and tabitha, likely old lacunar infarcts. Moderate supratentorial deep white matter hypodensities. Orbital contents are within normal range. Mucoperiosteal thickening and partial opacification of the ethmoid sinuses, bubbly secretion in the left frontal sinus, small mucous retention cyst or polyp in the right maxillary sinus. other paranasal sinuses and mastoid air cells are unremarkable. No acute fracture. Extracranial soft tissue unremarkable. Impression: 1. No acute intracranial finding. 2. Multiple old lacunar infarcts basal ganglia and tabitha. 3. Moderate supratentorial deep white matter hypodensities, non-specific, most frequently ascribed to chronic ischemic microangiopathy, other etiologies including demyelinating disease can have similar appearance, MRI can better evaluate if warranted. 4. Ethmoid and left frontal sinusitis. This document has been electronically signed by: Miryam Russell MD on 11/16/2024 10:53:09
== END 2024-11-15 16:24 | disposition home or self-care (01) ==
LOC: HO.CT 16:23
PROVIDERS: PCP Family Medicine; Visit Provider Physician Assistant Medical
DX: R53.1 Weakness (principal)
CPT/HCPCS: 70450

== ENCOUNTER → 2024-11-15 16:25 | Outpatient (BNV) | payer OTHER, SELFPAY | PROVIDERS: PCP Family Medicine; Visit Provider Radiology Diagnostic Radiology | DX: J01.20 Acute ethmoidal sinusitis, unspecified (principal) | CPT/HCPCS: 70450 ==

== ENCOUNTER → 2024-11-28 10:01 | Outpatient (REF) | payer OTHER, SELFPAY | LOC: HO.SL 10:01 | PROVIDERS: PCP Family Medicine; Visit Provider Physician Assistant Medical | DX: G47.33 Obstructive sleep apnea (adult) (pediatric) (principal); G47.19 Other hypersomnia; R06.83 Snoring; R53.83 Other fatigue | CPT/HCPCS: 95806 ==

== ENCOUNTER → 2024-11-28 10:22 | Outpatient (BNV) | payer OTHER, SELFPAY | PROVIDERS: PCP Family Medicine; Visit Provider Internal Medicine | DX: G47.10 Hypersomnia, unspecified (principal) | CPT/HCPCS: 95806 ==

== ENCOUNTER 2024-12-13 09:48 | Outpatient (AMB) | payer OTHER, SELFPAY ==
[2024-12-13 10:02] VITALS: BP 136/86; PULSE 81; O2SAT 96; BMI 30.1
--- NOTE | 2024-12-13 10:02 | MHC.OFFVIS ---
Vital Signs 12/13/24 10:02 Height 5 ft 10 in Weight 210 lb BMI 30.1 BP 136/86 Blood Pressure Location Lt brachial Position Sitting Pulse 81 Pulse Source Pulse Oximeter Pulse Oximetry (%) 96 Oxygen Delivery Method Room Air Intake Visit Reasons: 3m follow up Intake Note: Patient presents follow up Sleep/CVA medication. CT/HST in chart(AHI-48, BRENDAN-83%. APAP 5-20cm). Medical Information Specialist Required: Yes Medical Information Specialist Language: Dispatch Supervisor Services: Medical Information Specialist Offered & Declined Medical Information Specialist Name: Daughter Information Interpreted: non-clinical & clinical Accompanied by: Spouse Allergies levofloxacin Allergy (Intermediate, Verified 12/13/24 10:06) Rash HPI Comments Details: 64 y/o Vietnamese speaking r. handed male w/ h/o of syncope and MARGO referred to us by his PCP for evaluation of sleep apnea. His Vianey and daughter Alessia help with history today. 11/2024 HST c/w AHI is 48% and oxygen nadirs to 83%. Will send him for a titration study to determine the ideal pressures for treatment. Reviewed HST and labs with patient today. History of CVA September 2023 he had syncope and never went to the hospital, he is on a statin and aspirin. He goes to bed at 11pm, wakes up at 6:30am, with 2 bathroom breaks. His c/o loud snoring and gasping for air. Since his episode of syncope in September 2023, he has difficulty swallowing solids and liquids. He chews slowly but has difficulty pushing the bolus down the esophagus. He has acid reflux, moderate slurred speech, with drooling, and l. sided weakness. He has l. eye droop and l. sided upper / lower ext weakness. He has l. sided paresthesias, with cramps, pins and needles. He can walk with a cane and or walker when fatigued. His mood is depressed, he has anxiety, and irritability. He is sees a behavior therapist 2x a month at [facility]. His memory is poor, he forgets where things are placed, and has trouble finding them. He needs redirection and repeats the same questions. He continues to have headaches about 2-3 times per week, and they can last 30min to 1hour in the frontal area locally do not migrate. He has photophobia/ phonophobia, no identified triggers. [facility] Medical History Laboratory exam ordered as part of routine general medical examination Screening for prostate cancer Screening for colon cancer Adult general medical exam High blood pressure High cholesterol Mini stroke Surgical History S/P cholecystectomy History of appendectomy Family History Father Colon cancer Social History Household Members: Family Both parents involved: No Caregiver staying overnight: No Housing: House Are you a primary palliative care coordinator to a significant other at home: No Do you presently have visiting nurse or other home services: No 75 years or older and lives alone: No Alcohol intake: never Patient Tobacco Use Status: Never used Tobacco e-Cigarette/Vaping Use: Never Used Substance Use Type: Marijuana service: No Current occupational status: other Cognitive needs: No Hearing needs: No Vision needs: No Physical Exam Vital Signs: Last Vital Signs Pulse 81 12/13/24 10:02 BP 136/86 12/13/24 10:02 Pulse Ox 96 12/13/24 10:02 Oxygen Delivery Method Room Air 12/13/24 10:02 BMI result Body Mass Index 30.1 Const General: cooperative, comfortable and no acute distress Nutritional Appearance: average body habitus Orientation/consciousness: patient oriented x3 Limitations: language barrier HEENT Face and sinus: Yes other (assymetric facial expression drooping of L. lid and L. lip.) Mouth: lip abnormal and tongue abnormal (points to the left) Teeth and gingiva: other ([place] score of 3) Resp Effort & Inspection: normal respiratory effort and able to speak in complete sentences Neuro Other: L. Lid droop, L. lip droop, facial drooping left side, LUE / LLE weaker than right side. LUE hand movements are slower than right and gets confused with finger to nose coordination. General: patient oriented x3 and moves all extremities Cranial nerves: Yes Ability to bilaterally rotate head present and Yes Ability to bilaterally elevate shoulders present Speech: Other speech findings present (Neuro) (does not talk unable to evaluate not sure if it is a language barrier.) Gait exam (Neuro): Assistive device used and Other gait observations present (uses a cane) Motor exam (neuro): Normal motor muscle tone present throughout, Abnormal motor strength present (upper and lower l. extremities ) and Abnormal muscle tone present Deep tendon reflexes (DTR's): Right triceps reflex intensity grade: 2+, Left triceps reflex intensity grade: 2+, Rt Biceps (C5, C6): 2+, Left biceps reflex intensity grade: 2+, Right brachioradialis reflex intensity grade: 2+, Left brachioradialis reflex intensity grade: 2+, Right patellar reflex intensity grade: 2+ and Left patellar reflex intensity grade: 2+ Psych Appearance: grossly normal Affect: normal affect Results Reviewed Results Reviewed: CT scan November 15, 2024 Impression: 1. No acute intracranial finding. 2. Multiple old lacunar infarcts basal ganglia and tabitha. 3. Moderate supratentorial deep white matter hypodensities, non-specific, most frequently ascribed to chronic ischemic microangiopathy, other etiologies including demyelinating disease can have similar appearance, MRI can better evaluate if warranted. 4. Ethmoid and left frontal sinusitis. Assessment & Plan Assessment & Plan (1) Fatigue due to sleep pattern disturbance: Code(s): R53.83 - Other fatigue; G47.9 - Sleep disorder, unspecified Category: Medical (2) History of CVA (cerebrovascular accident): Code(s): Z86.73 - Personal history of transient ischemic attack (TIA), and cerebral infarction without residual deficits Category: Medical (3) Loud snoring: Code(s): R06.83 - Snoring Category: Medical (4) Worsening headaches: Comment: [facility] approved Code(s): R51.9 - Headache, unspecified Category: Medical (5) Left-sided weakness: Code(s): R53.1 - Weakness Category: Medical (6) Unsteady gait: Code(s): R26.81 - Unsteadiness on feet Category: Medical (7) MARGO on CPAP: Comment: AHI 48 and O2 Nadirs to 83% - severe margo will start cpap 5-20cm and send for titration Code(s): G47.33 - Obstructive sleep apnea (adult) (pediatric) Category: Medical Plan MARGO HST c/w AHI of 43 and O2 nadirs to 83% severe margo, will start cpap 5-20cm and send him for PSG in lab -titration to determine ideal pressures for ongoing treatment. Continue PT 2x a week for L. sided weakness of upper/ lower extremity and unsteadiness on feet due to gait / balance difficulties. OT referral for speech, drooling and dysphagia. Imagining CT scan reviewed with patient. moderate white matter hypodensities, microvascular ischemic disease, with multiple old lacunar infarcts in tabitha and basal ganglia, will send for MRI to r/o demyelinating diseases. Headaches: Start Nurtec 75mg po take every other day as prescribed for episodic prevention of migraines. Continue 400mg magnesium at bedtime. Stop sumatriptan 50mg po daily at the onset of headache may take one more within 2 hours of the first if the headache does not go away. F/U in 3 months Orders: Orders MR head/brain wo con Today R53.1 - Weakness, Z86.73 - Personal history of transient ischemic attack (TIA), and cerebral infarction without residual deficits Referrals Speech and Hearing Referral Z86.73 - Personal history of transient ischemic attack (TIA), and cerebral infarction without residual deficits Patient Instructions: Sleep Hygiene provided: set a scheduled bedtime and wake time to help regulate the circadian rhythm and balance the release of pituitary hormones. Sleep in a dark room, temperatures below 68 degrees, and no devices n bed. Limit caffeinated products 6 hours prior to bed, and limit fluids 2-4 hours prior to bed. Gentle night yoga, diffusing essential oils, and playing soft music can be relaxing. Coding Level of Care Code Est Pt Level 4 (62829) Diagnoses Fatigue due to sleep pattern disturbance R53.83; G47.9 History of CVA (cerebrovascular accident) Z86.73 Loud snoring R06.83 Worsening headaches R51.9 Left-sided weakness R53.1 Unsteady gait R26.81 MARGO on CPAP G47.33
== END 2024-12-13 10:50 | disposition home or self-care (01) ==
LOC: HO.HSMS 09:49
PROVIDERS: PCP Family Medicine; Visit Provider Physician Assistant Medical
DX: R53.83 Other fatigue (principal); G47.9 Sleep disorder, unspecified; Z86.73 Personal history of transient ischemic attack (TIA), and cerebral infarction without residual deficits; R06.83 Snoring; R51.9 Headache, unspecified; R53.1 Weakness; R26.81 Unsteadiness on feet; G47.33 Obstructive sleep apnea (adult) (pediatric)
CPT/HCPCS: 99214

== ENCOUNTER → 2024-12-13 09:48 | Outpatient (BNVA) | payer OTHER, SELFPAY | PROVIDERS: PCP Family Medicine; Visit Provider Physician Assistant Medical | DX: R53.83 Other fatigue (principal); G47.9 Sleep disorder, unspecified; Z86.73 Personal history of transient ischemic attack (TIA), and cerebral infarction without residual deficits; R51.9 Headache, unspecified; R53.1 Weakness; R26.81 Unsteadiness on feet; G47.33 Obstructive sleep apnea (adult) (pediatric); Z99.89 Dependence on other enabling machines and devices | CPT/HCPCS: 99212 ==

== ENCOUNTER 2024-12-25 19:27 | Outpatient (REF) | payer OTHER, SELFPAY ==
--- NOTE | ~2024-12-25 | MR_ITS ---
CLINICAL HISTORY: Z86.73 - Personal history of transient ischemic attack (TIA), and cerebr... --- Additional Notes or Special Instructions: r o demyelinating diseases MR Brain without gadolinium Comparison: CT/REG/SR - CT HEAD/BRAIN WO IV CON - 11/15/24 17:28 EDT Findings: No restricted diffusion. No intra-axial mass or hemorrhage. No midline shift. No hydrocephalus. Vascular flow voids are intact. Multiple chronic lacunar infarcts involving tabitha, bilateral thalami, basal ganglia and periventricular white matter. Numerous, predominantly central small foci of susceptibility artifacts most likely represent chronic hypertensive microhemorrhages. Moderate generalized cerebral volume loss and moderate microvascular ischemic changes periventricular and subcortical white matter. Orbital contents are unremarkable. Moderate mucosal thickening and opacification of the paranasal sinus. No air-fluid levels. No focal bone lesion. IMPRESSION: No acute infarct, or acute intracranial hemorrhage or mass lesions. Multiple chronic lacunar infarcts involving tabitha, bilateral thalami, bilateral basal ganglia, and periventricular white matter. Numerous predominantly central small foci of susceptibility artifact, most likely represent hypertensive microhemorrhages /hemosiderin deposition. Moderate generalized cerebral volume loss and chronic microvascular ischemic changes. Paranasal sinus disease. This document has been electronically signed by: Brandee Vidal MD on 12/25/2024 20:50:06
== END 2024-12-25 19:28 | disposition home or self-care (01) ==
LOC: HO.MRI 19:27
PROVIDERS: PCP Family Medicine; Visit Provider Physician Assistant Medical
DX: R53.1 Weakness (principal); Z86.73 Personal history of transient ischemic attack (TIA), and cerebral infarction without residual deficits
CPT/HCPCS: 70551

== ENCOUNTER → 2024-12-25 19:53 | Outpatient (BNV) | payer OTHER, SELFPAY | PROVIDERS: PCP Family Medicine; Visit Provider Student in an Organized Health Care Education/Training Program | DX: R94.02 Abnormal brain scan (principal); Z86.73 Personal history of transient ischemic attack (TIA), and cerebral infarction without residual deficits | CPT/HCPCS: 70551 ==

== ENCOUNTER → 2025-01-02 20:30 | Outpatient (REF) | payer OTHER, SELFPAY | LOC: HO.SL 20:30 | PROVIDERS: PCP Family Medicine; Visit Provider Physician Assistant Medical | DX: G47.33 Obstructive sleep apnea (adult) (pediatric) (principal) | CPT/HCPCS: 95811 ==

== ENCOUNTER → 2025-01-02 20:43 | Outpatient (BNV) | payer OTHER, SELFPAY | PROVIDERS: PCP Family Medicine; Visit Provider Psychiatry & Neurology Neurology | DX: G47.33 Obstructive sleep apnea (adult) (pediatric) (principal) | CPT/HCPCS: 95811 ==

== ENCOUNTER 2025-01-25 15:15 | Outpatient (AMB) | payer OTHER, SELFPAY ==
--- NOTE | 2025-01-25 15:16 | A.OFFPC_ITS ---
Vital Signs 01/25/25 15:22 Height 5 ft 10 in Weight 213 lb BMI 30.6 BP 141/72 H Blood Pressure Location Rt brachial Position Sitting Respiration 16 Pulse 78 Pulse Source Pulse Oximeter Temp 98.0 F Temp Source Oral Pulse Oximetry (%) 96 Oxygen Delivery Method Room Air Intake Visit Reasons: f/u HTN, chronic condition Intake Note: patient here for follow up on HTN and chronic condition Superintendent Overhead Distribution Required: No Superintendent Overhead Distribution Name: pt refused/ daughter inlaw Information Interpreted: non-clinical & clinical Allergies levofloxacin Allergy (Intermediate, Verified 01/25/25 15:20) Rash Medication List - Last Reconciled 01/25/25 by Ryley Yates MD aripiprazole (Abilify) 2 mg PO BEDTIME 30 days aspirin (Adult Aspirin Regimen) 81 mg PO DAILY 90 days atorvastatin 40 mg PO BEDTIME 90 days cane Daily, As directed, 999 days finasteride 5 mg PO DAILY 90 days hydroxyzine HCl 25 mg PO BEDTIME lisinopril 20 mg PO DAILY 90 days omeprazole 40 mg PO DAILY 90 days [raised toilet seat As directed patient requires a raised toilet seat] rimegepant (Nurtec ODT) 75 mg PO Q OTHER DAY PRN 2 months [shower bench As directed] sodium,potassium,mag sulfates 17.5-3.13-1.6 gram (Suprep Bowel Prep Kit) 480 mL orally; FOR COLONOSCOPY PREP trazodone 50 mg PO DAILY [walker As directed- rolling walker for ambulation, and prevent injury due to risk of falls.] Tobacco use date assessed: 01/25/25 Fall risk assessment: 1 Fall in past year Last assessed Fall Risk: 01/25/25 Dental Screening Dental Screen Date: 01/25/25 Did you have a dental visit in the last 12 months?: Yes Did you have a dental problem in the last 6 months where you did not have access to dental care?: No Was dental information given to patient?: Patient has dentist HPI f/u HTN, chronic condition HPI Details 65 y/o female presents to f/u HTN, chron ic conditions. Blood pressure today 141/72, 78p. He is on lisinopril 20mg. Hx of CVA, sleep apnea. Reports ongoing unsteady gait. Has complaints of ringworm. FORMERLY [facility], [facility] Medical History Laboratory exam ordered as part of routine general medical examination Screening for prostate cancer Screening for colon cancer Adult general medical exam High blood pressure High cholesterol Mini stroke Surgical History S/P cholecystectomy History of appendectomy Family History Father Colon cancer Social History Household Members: Family Both parents involved: No Caregiver staying overnight: No Housing: House Are you a primary personal care service provider to a significant other at home: No Do you presently have visiting nurse or other home services: No 75 years or older and lives alone: No Alcohol intake: never Patient Tobacco Use Status: Never used Tobacco e-Cigarette/Vaping Use: Never Used Substance Use Type: Marijuana service: No Current occupational status: other Cognitive needs: No Hearing needs: No Vision needs: No Questionnaire PHQ-9 Over the last 2 weeks, how often have you been bothered by any of the following problems? 1. Little interest or pleasure in doing things: several days 2. Feeling down, depressed, or hopeless: several days 3. Trouble falling or staying asleep, or sleeping too much: several days 4. Feeling tired or having little energy: several days 5. Poor appetite or overeating: not at all 6. Feeling bad about yourself - or that you are a failure or have let yourself or your family down: several days 7. Trouble concentrating on things, such as reading the newspaper or watching television: several days 8. Moving or speaking so slowly that other people could have noticed. Or the opposite - being so fidgety or restless that you have been moving around a lot more than usual: several days 9. Thoughts that you would be better off or of hurting yourself in some way: not at all Total score: 7 Source: Developed by Drs. Memo Tam, Malika Mason, Darius Acuna and colleagues, with an educational micaela from [employer]. Thrive Questionnaire Date Thrive assessed: 10/06/24 Do you have trouble getting transportation to medical appointments?: No Do you have trouble paying your heating and electricity bill?: I choose not to answer this question Do you have trouble taking care of your child, family member or friend?: I choose not to answer this question Do you have trouble with day-to-day activities such as bathing, preparing meals, shopping, managing finances, etc.?: Yes Are you currently unemployed and looking for a job?: I choose not to answer this question Are you interested in more education?: No Please select the resources that you would like help with: None Currently or been in a relationship where the following occur: No concerns reported THRIVE Score: 0 HUNTER-7 AMB Questionnaire HUNTER-7 Date HUNTER - 7 assessed: 12/30/23 Feeling nervous, anxious, or on edge: 1 = Several days Not being able to stop or control worryin = Several days Worrying too much about different things: 1 = Several days Trouble relaxin = Several days Being so restless that it is hard to sit still: 0 = Not at all Becoming easily annoyed or irritable: 1 = Several days Feeling afraid as if something awful might happen: 0 = Not at all Total HUNTER-7 score (0-4 normal; 5-9 mild; 10-14 moderate; 15-21 severe): 5 Source: Developed by Drs. Memo Tam, Malika Mason, Darius Acuna and colleagues, with an educational micaela from [employer]. Review of Systems Const Denies chills, Denies fatigue, Denies fever(s), Denies headache(s) and Denies weakness ENT Denies dizziness and Denies headache(s) Card Denies dyspnea Resp Denies cough, Denies dyspnea, Denies wheezing and Denies other (shortness of breath) Musc Denies numbness and Denies tingling Neuro Denies dizziness, Denies headache(s), Denies numbness, Denies tingling and Denies weakness Psych Denies anxiety and Denies depression Endo Denies fatigue Aller/Immun Denies wheezing Physical exam (Primary Care) Vital Signs: Last Vital Signs Temp 98.0 F 01/25/25 15:22 Pulse 78 01/25/25 15:22 Resp 16 01/25/25 15:22 BP 141/72 H 01/25/25 15:22 Pulse Ox 96 01/25/25 15:22 Oxygen Delivery Method Room Air 01/25/25 15:22 BMI result Body Mass Index 30.6 Tobacco/Smoking Status: Tobacco use Status Tobacco use date assessed 01/25/25 01/25/25 15:26 Patient Tobacco Use Status Never used Tobacco 01/25/25 15:18 e-Cigarette/Vaping Use Never Used 01/25/25 15:18 PHQ-9: PHQ-9 Score PHQ-9: Total score 7 01/25/25 15:55 Thrive Assessment: Date of Thrive Assessment Date Thrive assessed 10/06/24 01/25/25 15:18 Currently or been in a relationship where the following occur: No concerns reported Const General: well developed; No acute distress Nutritional Appearance: well nourished Orientation/consciousness: patient oriented x3 HENMT Head: Yes normocephalic and Yes atraumatic Eyes General: appearance normal, both eyes and all related structures Pupils: Equal, round and reactive pupils present EOM: EOMs intact bilaterally Resp Effort & Inspection: normal respiratory effort Neuro General: patient oriented x3 and gait normal Cranial nerves: Yes Equal, round and reactive pupils present Psych Affect: normal affect Coding Level of Care Code Est Pt Level 5 (72779) Diagnoses High blood pressure I10 Sleep apnea G47.30 History of CVA (cerebrovascular accident) Z86.73 Unsteady gait R26.81 Ringworm B35.9 Low back pain M54.50 Assessment & Plan Assessment & Plan (1) High blood pressure: Code(s): I10 - Essential (primary) hypertension Category: Medical Plan: Blood pressure is little too high. Changing lisinopril 20 mg daily to lisinopril-hydrochlorothiazide 20/12.5 mg daily (2) Sleep apnea: Code(s): G47.30 - Sleep apnea, unspecified Category: Medical Plan: Not using CPAP Follow-up with sleep medicine as recommended (3) History of CVA (cerebrovascular accident): Code(s): Z86.73 - Personal history of transient ischemic attack (TIA), and cerebral infarction without residual deficits Category: Medical Plan: History of CVA and difficulty with mobility. Significantly unsteady gait with cane. Continue physical therapy. May need a walker. Should have TIRE CARE MANAGER available - start 2 hours daily x7 days; 14 hours per week (4) Unsteady gait: Code(s): R26.81 - Unsteadiness on feet Category: Medical Plan: as above (5) Ringworm: Code(s): B35.9 - Dermatophytosis, unspecified Category: Medical Plan: Start Clotrimazole cream Avoid excess moisture (6) Low back pain: Code(s): M54.50 - Low back pain, unspecified Category: Medical Plan: L worse than R lower back pain and L lower posterior rib pain. s/p fall x 1 month. Check x-rays He continues physical therapy Ice/heat Topicals He will let me know if not improving Orders: Orders XR lumbar spine 2-3V 01/25/25 M54.50 - Low back pain, unspecified XR ribs RT 2V 01/25/25 M54.50 - Low back pain, unspecified XR ribs LT 2V 01/25/25 M54.50 - Low back pain, unspecified Medications: New lisinopril-hydrochlorothiazide 20-12.5 mg 1 tab PO DAILY 90 tabs 3RF 90 days clotrimazole 1% 1 appl topical BID 30 grams 1RF 2 weeks Discontinued lisinopril Discontinued Reason: Doctor's Order 20 mg PO DAILY 90 days 90 tabs 2RF
[2025-01-25 15:22] VITALS: BP 141/72; PULSE 78; RESP 16; TEMP 36.7; O2SAT 96; BMI 30.6
== END 2025-01-25 15:58 | disposition home or self-care (01) ==
LOC: HO.HMCFM 15:15
PROVIDERS: PCP Family Medicine; Visit Provider Family Medicine
DX: I10 Essential (primary) hypertension (principal); G47.30 Sleep apnea, unspecified; Z86.73 Personal history of transient ischemic attack (TIA), and cerebral infarction without residual deficits; R26.81 Unsteadiness on feet; B35.9 Dermatophytosis, unspecified; M54.50 Low back pain, unspecified

== ENCOUNTER → 2025-01-25 15:15 | Outpatient (BNVA) | payer OTHER, SELFPAY | PROVIDERS: PCP Family Medicine; Visit Provider Family Medicine | DX: I10 Essential (primary) hypertension (principal); M54.50 Low back pain, unspecified; G47.30 Sleep apnea, unspecified; R26.81 Unsteadiness on feet; B35.9 Dermatophytosis, unspecified; Z86.73 Personal history of transient ischemic attack (TIA), and cerebral infarction without residual deficits | CPT/HCPCS: 99212 ==

== ENCOUNTER 2025-02-01 10:15 | Outpatient (RCR) | payer OTHER, SELFPAY ==
[2024-11-15 08:01] VITALS: BP 130/70; PULSE 89; O2SAT 97
--- NOTE | 2024-11-15 14:15 | MHC.PT.EP ---
[facility] [place] Office [place] Office [place] Office [address] Teodoro Bolton [address] [phone] F: [phone] F: [phone] F: [phone] F: [phone] Physical Therapy Plan of Care Date of Evaluation: 11/15/24 Date of Surgery: Diagnosis: PT eval and treat; R53.1 Weakness, Z86.73 Personal history of transient ischemic attack (TIA) and cerebral infarction without residual deficits, R26.81 Unsteadiness on feet; Left sided weakness, history of CVA , unsteady gait signed by Gage Crum, 09/09/24 Assessment: Pt is a RHD 64 y/o male, referred to PT for treatment of PT eval and treat; R53.1 Weakness, Z86.73 Personal history of transient ischemic attack (TIA) and cerebral infarction without residual deficits, R26.81 Unsteadiness on feet; Left sided weakness, history of CVA , unsteady gait signed by Gage Crum, 09/09/24 following history of syncopal collapse in September 2023 with no history of seeking medical attention afterward. Pt was seen by PCP in 07/12 (see notes) and referred to neurology for concern for MARGO. Pt was seen by neuro and referred to PT 09/09/24. Pt exhibits poor static and dynamic standing balance, poor gait stability (presents with std cane carrying in R UE but using intermittently), presents with globally impaired strength of trunk/L UE/LE, (verbalizes fatigue with assessment of patient rolling over in bed, standing up for example) impaired AROM of both UE, expressed global fatigue, unable to express date/month. It is (unclear if language barrier played a role vs confusion however use of interpreter translator was used during assessment). Pt oriented to person/place *(#Missy [id number] science interpreter used. Pt also exhibits impaired strength of cervical spine (limited AROM extension, notes fatigue and heaviness of bilateral arms AROM grossly ~90 degrees flexion). Pt exhibits L facial asymmetry and weakness of L eyelid with drooping. Pt reports history of difficulty swallowing (had barium swallow 01/11,last fall [facility] see notes but no specific diet modification is documented within PT access). Pt appears confused at times, exhbits decreased motor control and ability to follow commands/instruction consistently. Pt presents to the office with spouse Vianey, notes is booked for a CT scan this afternoon. Pt exhibited impaired finger to nose on L (much longer processing with pause noted before touching nose), impaired AROM and mobility in L UE/L LE compared to R. Pt will benefit from attending skilled PT services at a frequency of 2x/week x 6 weeks to address impairments, implement HEP, and establish care to reduce risk of falls. Pt may benefit from SEARCH ENGINE OPTIMIZER support and obtaining a shower bench to reduce risk of falls when bathing. Pt's spouse vocalizes being overwhelmed with current task/support placed on her for his care. Pt's spouse was educated re: safe sequencing for stair climbing, and instruction to use hands for transfers at all times. Pt was educated regarding goals of therapy. Pt will be seen in PT 1:1 due to high fall risk and language barrier. Pt will likely benefit referral to speech therapy to screen swallowing/chewing/tongue difficulty (hx swallow eval 01/11). It is unclear if patient has ever been to speech therapy, however pt's spouse states he has not. Pt will benefit from attending skilled PT 2x/week x 6 weeks. Frequency and Duration: The patient will be seen 2x/week x 6 weeks Short Term Goals: 1. Pt will demonstrate sit<>stand on first attempt. (IR: poor dynamic balance, tried to push from cane, no UE support, did scoot). 2. Pt will demonstrate stand<>sit with good eccentric control. (IR: poor eccentric control, concern for fall). 3. Pt will demonstrate bed mobility S level with good safety. (IR: increased time and difficulty rolling from supine<>L SL, bridge fair symmetry but very challenged, difficulty rolling to R side, legs with less control, heavier reliance pulling on UE. 4. Initiate self care/HEP program. (IR: no HEP, sedentary, TV prolonged sitting at home). 5. Demonstrate safety and hand placement with functional transfers. (IR: scoots to edge but no consistent use of hand for transfer to stand/sit). Assisted Goals: 1. I HEP for caregiver/support education. 2. Transfers MOD I with good safety. (IR: close supervision, poor control, poor safety noted, 1.5 reps 30 second sit<>stand at assessment. 3. Ambulate 500ft with std cane with good dynamic balance/safety. 4. Pt will ascend/descend stairs with use of std cane with use of rail/CGA with good insight to safety. 5. Pt will demonstrate Treatment Plan: Modalities to reduce pain, spasms and effusion. Manual therapy to restore motion and function. Therapeutic exercise to improve strength and flexibility. Neuromuscular re-education for posture and balance. Therapeutic activities to return to functional activities of daily living. Electronically signed by: Abida Chung, PT, DPT Please sign and return to therapist. Thank you for your referral.
--- NOTE | 2024-11-17 12:07 | MHC.PT.OD ---
[facility] [place] [facility] [place] [address] Teodoro Bolton [address] [phone] F: [phone] F: [phone] F: [phone] F: [phone] Physical Therapy Daily Note Diagnosis: PT eval and treat; R53.1 Weakness, Z86.73 Personal history of transient ischemic attack (TIA) and cerebral infarction without residual deficits, R26.81 Unsteadiness on feet; Left sided weakness, history of CVA , unsteady gait signed by Gage Crum, 09/09/24 Date of Surgery: Date of Evaluation: 11/15/24 Date of Treatment: 11/17/24 Treatments to Date: Cancellations to Date: No Shows to Date: Authorized Visits: 2 Insurance End Date: Precautions/ Contraindications:HTN, history of falls, presumed history of CVA September [address] later today 4:45pm, gait instability Subjective: Pt had CT scan done. Pt presents with significant other Vianey and use of std cane. Pt noted to have difficulty keeping L eye open at times. Pain Score and Location: Objective Flowsheet: Tests & Measures Exercises Vitals pre activity: BP 120/70mmHg, HR 99, Sp02 96% pre activity. NUSTEP 4 minutes with no added resistance. Pt fatigue. HR post 98, SP02 98%. Pt verbalizing fatigue. Sit<>stand and stand<>sit x 5 sets of 2R with cues and education for hand placement, having legs touch back of chair, and symmetry/eccentric control upon standing. Cues for posture, support in standing. Transfer training from various surfaces including low chair and higher chair with arms. Pt educated re: use of hand placement, eccentric control and ensuring balance of legs upon standing. Educated and encouraged to perform sit<>stand /stand<>sit at home with use of kitchen table in front for safety. Handout given for self education. Encouraged movement every hour to aide in mobility/strength. Education for movemeent every hour, education for hand placement/transfer training, education to follow up with CT dept re: missed follow up call, Therapist to address script for RW and shower bench from referring provider Educated re: goals of PT, encouragement for PT participation twice weekly Gait training with RW in gym and in hallway with carpeting, over thresh-hold for obstacle negotiation x 300ft. Completed education for turning, safety with using walker, and goals of not leaning forward on walker. Pt noted to require standing rest breaks every 50ft or so. Gait training on steps (ascending two 4 inch step) with use of left rail and R std cane, ascending with R LE first then L LE then cane. Education for spouse and caregiver regarding this sequencing. Descending stairs with cane first, then L LE, then R LE. Completed further training and education on outside curb step with no rail. CGA from therapist. Pt showcased poor carryover of previous educatiin in the clinic. Pt's spouse was educated re: sequencing for activity with (+) carryover noted. Impression: 1. No acute intracranial finding. 2. Multiple old lacunar infarcts basal ganglia and tabitha. 3. Moderate supratentorial deep white matter hypodensities, non-specific, most frequently ascribed to chronic ischemic microangiopathy, other etiologies including demyelinating disease can have similar appearance, MRI can better evaluate if warranted. 4. Ethmoid and left frontal sinusitis. This document has been electronically signed by: Miryam Russell MD on 11/16/2024 10:53:09 Dictated By:Miryam Russell MD Signed By:<Electronically signed by Miryam Russell MD in OV>11/16/24 1054 Modalities Assessment: 11/17/24: Fercho was trialed with use of RW in the office today, exhibiting improved stability, confidence, and endurance for mobility compared when using std cane. He would benefit from obtaining a RW and shower bench for home to maximize safety.IF POSSIBLE PLEASE WRITE A SCRIPT FOR THESE He was educated re: hand placement and transfer training today with limited endurance, quick to fatigue. He would also benefit from FERRY TERMINAL AGENT support to aide in his care/support at home, spouse verbalizes being overwhelmed. His spouse expresses feeling overwhelmed with his care. His CT scan results are in (see above attached). Pt reports missing a call from that office- he was encouraged to call them back to obtain results/address their call. He will be seen in PT twice a week. Pt poses as a fall risk and requires CGA 1:1 for walking/therapy/balance tasks. Pt is a RHD 64 y/o male, referred to PT for treatment of PT eval and treat; R53.1 Weakness, Z86.73 Personal history of transient ischemic attack (TIA) and cerebral infarction without residual deficits, R26.81 Unsteadiness on feet; Left sided weakness, history of CVA , unsteady gait signed by Gage Crum, 09/09/24 following history of syncopal collapse in September 2023 with no history of seeking medical attention afterward. Pt was seen by PCP in 07/12 (see notes) and referred to neurology for concern for MARGO. Pt was seen by neuro and referred to PT 09/09/24. Pt exhibits poor static and dynamic standing balance, poor gait stability (presents with std cane carrying in R UE but using intermittently), presents with globally impaired strength of trunk/L UE/LE, (verbalizes fatigue with assessment of patient rolling over in bed, standing up for example) impaired AROM of both UE, expressed global fatigue, unable to express date/month. It is (unclear if language barrier played a role vs confusion however use of auto service dispatcher was used during assessment). Pt oriented to person/place *(#Jacielli [id number] maintenance custodian used. Pt also exhibits impaired strength of cervical spine (limited AROM extension, notes fatigue and heaviness of bilateral arms AROM grossly ~90 degrees flexion). Pt exhibits L facial asymmetry and weakness of L eyelid with drooping. Pt reports history of difficulty swallowing (had barium swallow 01/11,last fall [facility] see notes but no specific diet modification is documented within PT access). Pt appears confused at times, exhbits decreased motor control and ability to follow commands/instruction consistently. Pt presents to the office with spouse Vianey, notes is booked for a CT scan this afternoon. Pt exhibited impaired finger to nose on L (much longer processing with pause noted before touching nose), impaired AROM and mobility in L UE/L LE compared to R. Pt will benefit from attending skilled PT services at a frequency of 2x/week x 6 weeks to address impairments, implement HEP, and establish care to reduce risk of falls. Pt may benefit from FERRY TERMINAL AGENT support and obtaining a shower bench to reduce risk of falls when bathing. Pt's spouse vocalizes being overwhelmed with current task/support placed on her for his care. Pt's spouse was educated re: safe sequencing for stair climbing, and instruction to use hands for transfers at all times. Pt was educated regarding goals of therapy. Pt will be seen in PT 1:1 due to high fall risk and language barrier. Pt will likely benefit referral to speech therapy to screen swallowing/chewing/tongue difficulty (hx swallow eval 01/11). It is unclear if patient has ever been to speech therapy, however pt's spouse states he has not. Pt will benefit from attending skilled PT 2x/week x 6 weeks. PT Plan: Progress bed mobility/bridge/scoot/log roll next session. Short Term Goals: 1. Pt will demonstrate sit<>stand on first attempt. (IR: poor dynamic balance, tried to push from cane, no UE support, did scoot). 2. Pt will demonstrate stand<>sit with good eccentric control. (IR: poor eccentric control, concern for fall). 3. Pt will demonstrate bed mobility S level with good safety. (IR: increased time and difficulty rolling from supine<>L SL, bridge fair symmetry but very challenged, difficulty rolling to R side, legs with less control, heavier reliance pulling on UE. 4. Initiate self care/HEP program. (IR: no HEP, sedentary, TV prolonged sitting at home). 5. Demonstrate safety and hand placement with functional transfers. (IR: scoots to edge but no consistent use of hand for transfer to stand/sit). Circulation Supervisor Goals: 1. I HEP for caregiver/support education. 2. Transfers MOD I with good safety. (IR: close supervision, poor control, poor safety noted, 1.5 reps 30 second sit<>stand at assessment. 3. Ambulate 500ft with std cane with good dynamic balance/safety. 4. Pt will ascend/descend stairs with use of std cane with use of rail/CGA with good insight to safety. 5. Pt will demonstrate Electronically signed by: Abida Chung, PT, DPT
== END 2025-02-20 13:00 | disposition home or self-care (01) ==
LOC: HO.PTS 10:15
PROVIDERS: PCP Family Medicine; Visit Provider Physician Assistant Medical
DX: R53.1 Weakness (principal); Z86.73 Personal history of transient ischemic attack (TIA), and cerebral infarction without residual deficits; R26.81 Unsteadiness on feet
CPT/HCPCS: 97110; 97112; 97116; 97163; 97164; 97530

== ENCOUNTER 2025-02-08 | Outpatient (REF) | payer OTHER, SELFPAY ==
--- NOTE | ~2025-02-08 | XR_ITS ---
EXAMINATION: XR RIBS, BILATERAL CLINICAL INFORMATION: M54.50 - Low back pain, unspecified COMPARISON: Chest x-ray dated October 17, 2017. TECHNIQUE: AP chest. Oblique views of the right and left hemithorax. FINDINGS: Hyperinflated lungs. Pulmonary reticular pattern. No consolidation, pleural effusion or pneumothorax. Cardiomediastinal silhouette size is normal. No acute cortical disruption in the ribs. Multilevel spondylosis, thoracic and lumbar spine. Vascular clips right upper quadrant abdomen.. XR/XR ribs BI 3V IMPRESSION: No acute rib fracture. Concerning chronic interstitial lung disease without acute airspace disease. Multilevel thoracolumbar spondylosis. EXAMINATION: XR LUMBOSACRAL SPINE CLINICAL INFORMATION: M54.50 - Low back pain, unspecified COMPARISON: None available. TECHNIQUE: AP and lateral views FINDINGS: Multilevel marginal osteophyte formation and syndesmophyte formation and calcifications of the anterior longitudinal ligament. Multiple marginal osteophyte formation throughout the lumbar spine. Mild endplate sclerosis at multiple levels. No acute cortical disruption or malalignment. No lytic or blastic lesions. Vascular clips right upper quadrant abdomen likely prior cholecystectomy. IMPRESSION: Multilevel thoracolumbar spondylosis. Ankylosis spondylitis cannot be excluded. Electronically signed by: Sulaiman Hernandez MD 02/08/2025 03:22 PM EDT
--- NOTE | ~2025-02-08 | XR_ITS ---
EXAMINATION: XR RIBS, BILATERAL CLINICAL INFORMATION: M54.50 - Low back pain, unspecified COMPARISON: Chest x-ray dated October 17, 2017. TECHNIQUE: AP chest. Oblique views of the right and left hemithorax. FINDINGS: Hyperinflated lungs. Pulmonary reticular pattern. No consolidation, pleural effusion or pneumothorax. Cardiomediastinal silhouette size is normal. No acute cortical disruption in the ribs. Multilevel spondylosis, thoracic and lumbar spine. Vascular clips right upper quadrant abdomen.. XR/XR lumbar spine 2-3V IMPRESSION: No acute rib fracture. Concerning chronic interstitial lung disease without acute airspace disease. Multilevel thoracolumbar spondylosis. EXAMINATION: XR LUMBOSACRAL SPINE CLINICAL INFORMATION: M54.50 - Low back pain, unspecified COMPARISON: None available. TECHNIQUE: AP and lateral views FINDINGS: Multilevel marginal osteophyte formation and syndesmophyte formation and calcifications of the anterior longitudinal ligament. Multiple marginal osteophyte formation throughout the lumbar spine. Mild endplate sclerosis at multiple levels. No acute cortical disruption or malalignment. No lytic or blastic lesions. Vascular clips right upper quadrant abdomen likely prior cholecystectomy. IMPRESSION: Multilevel thoracolumbar spondylosis. Ankylosis spondylitis cannot be excluded. Electronically signed by: Sulaiman Hernandez MD 02/08/2025 03:22 PM EDT
== END 2025-02-08 00:01 ==
LOC: HO.XRAY
PROVIDERS: Absent Provider Family Medicine; PCP Family Medicine; Visit Provider Physician Assistant Medical
DX: M54.50 Low back pain, unspecified (principal)
CPT/HCPCS: 71110; 72100

== ENCOUNTER → 2025-02-08 14:31 | Outpatient (BNV) | payer OTHER, SELFPAY | PROVIDERS: Absent Provider Family Medicine; PCP Family Medicine; Visit Provider Radiology Diagnostic Radiology | DX: M47.815 Spondylosis without myelopathy or radiculopathy, thoracolumbar region (principal) | CPT/HCPCS: 71110; 72100 ==

== ENCOUNTER 2025-02-27 15:22 | Outpatient (AMB) | payer OTHER, SELFPAY ==
--- NOTE | 2025-02-27 15:31 | MHC.PC.OV ---
Vital Signs 02/27/25 15:35 Height 5 ft 10 in Weight 215 lb 4 oz BMI 30.9 BP 130/70 Blood Pressure Location Rt brachial Position Sitting Respiration 12 Pulse 86 Pulse Source Pulse Oximeter Temp 98.3 F Temp Source Oral Pulse Oximetry (%) 97 Oxygen Delivery Method Room Air Intake Visit Reasons: f/u chronic conditions Intake Note: patient is scheduled to follow up for htn and chronic conditions. Loan Officer Assistant Required: No Allergies levofloxacin Allergy (Intermediate, Verified 02/27/25 15:34) Rash Medication List - Last Reconciled 02/27/25 by Ryley Yates MD aripiprazole (Abilify) 2 mg PO BEDTIME 30 days aspirin (Adult Aspirin Regimen) 81 mg PO DAILY 90 days atorvastatin 40 mg PO BEDTIME 90 days cane Daily, As directed, 999 days clotrimazole 1% 1 appl topical BID 2 weeks finasteride 5 mg PO DAILY 90 days hydroxyzine HCl 25 mg PO BEDTIME lisinopril-hydrochlorothiazide 20-12.5 mg 1 tab PO DAILY 90 days omeprazole 40 mg PO DAILY 90 days [raised toilet seat As directed patient requires a raised toilet seat] rimegepant (Nurtec ODT) 75 mg PO Q OTHER DAY PRN 2 months [shower bench As directed] sodium,potassium,mag sulfates 17.5-3.13-1.6 gram (Suprep Bowel Prep Kit) DILUTE each bottle with 16oz of water; drink first bottle 5pm evening before procedure AND second bottle at 11pm; follow each bottle with at least 32 oz.of water within 1 hour after each bottle trazodone 50 mg PO DAILY [walker As directed- rolling walker for ambulation, and prevent injury due to risk of falls.] Tobacco use date assessed: 01/25/25 Dental Screening Dental Screen Date: 01/25/25 HPI f/u chronic conditions HPI Details 65 y/o male presents to .u chronic conditions. Lumbar spine xray 02/08/25 shows: Multilevel thoracolumbar spondylosis. Ankylosis spondylitis cannot be excluded. No acute rib fracture. Concerning chronic interstitial lung disease without acute airspace disease. Blood pressure today 130/70, 86p. He is on lisinopril-HCTZ 20-12.5mg daily. [facility] Medical History Laboratory exam ordered as part of routine general medical examination Screening for prostate cancer Screening for colon cancer Adult general medical exam High blood pressure High cholesterol Mini stroke Surgical History S/P cholecystectomy History of appendectomy Family History Father Colon cancer Social History Household Members: Family Both parents involved: No Caregiver staying overnight: No Housing: House Are you a primary behavioral health care manager to a significant other at home: No Do you presently have visiting nurse or other home services: No 75 years or older and lives alone: No Alcohol intake: never Patient Tobacco Use Status: Never used Tobacco e-Cigarette/Vaping Use: Never Used Substance Use Type: Marijuana service: No Current occupational status: other Cognitive needs: No Hearing needs: No Vision needs: No Questionnaire Thrive Questionnaire Date Thrive assessed: 10/06/24 I am a: Patient What is your living situation today?: I have a steady place to live Within the past 12 months, did the food you bought not last and you didn't have the money to get more?: I choose not to answer this question Within the past 12 months, did you worry whether your food would run out before you got money to buy more?: Never true Do you have trouble paying for medicines?: No Do you have trouble getting transportation to medical appointments?: No Do you have trouble paying your heating and electricity bill?: I choose not to answer this question Do you have trouble taking care of your child, family member or friend?: I choose not to answer this question Do you have trouble with day-to-day activities such as bathing, preparing meals, shopping, managing finances, etc.?: Yes Are you currently unemployed and looking for a job?: I choose not to answer this question Are you interested in more education?: No Please select the resources that you would like help with: None Currently or been in a relationship where the following occur: No concerns reported THRIVE Score: 0 HUNTER-7 AMB Questionnaire HUNTER-7 Date HUNTER - 7 assessed: 12/30/23 Source: Developed by Drs. Memo Tam, Malika Mason, Darius Acuna and colleagues, with an educational micaela from [employer]. Review of Systems Const Denies chills, Denies fatigue, Denies fever(s), Denies headache(s) and Denies weakness ENT Denies dizziness and Denies headache(s) Card Denies chest pain, Denies lightheadedness, Denies dyspnea and Denies other (Palpitations) Resp Denies cough, Denies dyspnea, Denies wheezing and Denies other ( shortness of breath) Musc Denies numbness and Denies tingling Neuro Denies dizziness, Denies headache(s), Denies numbness, Denies tingling, Denies paresthesias and Denies weakness Psych Denies anxiety and Denies depression Endo Denies fatigue Aller/Immun Denies wheezing Physical exam (Primary Care) Vital Signs: Last Vital Signs Temp 98.3 F 02/27/25 15:35 Pulse 86 02/27/25 15:35 Resp 12 02/27/25 15:35 BP 130/70 02/27/25 15:35 Pulse Ox 97 02/27/25 15:35 Oxygen Delivery Method Room Air 02/27/25 15:35 BMI result Body Mass Index 30.9 Tobacco/Smoking Status: Tobacco use Status Tobacco use date assessed 01/25/25 02/27/25 15:31 Patient Tobacco Use Status Never used Tobacco 02/27/25 15:31 e-Cigarette/Vaping Use Never Used 02/27/25 15:31 Thrive Assessment: Date of Thrive Assessment Date Thrive assessed 10/06/24 02/27/25 15:31 Currently or been in a relationship where the following occur: No concerns reported Const General: no acute distress and well developed Nutritional Appearance: well nourished Orientation/consciousness: patient oriented x3 [facility] Head: Yes normocephalic and Yes atraumatic Eyes General: appearance normal, both eyes and all related structures Pupils: Equal, round and reactive pupils present EOM: EOMs intact bilaterally Resp Effort & Inspection: normal respiratory effort Auscultation: clear to auscultation bilaterally Cardio Rate: regular rate Rhythm: regular rhythm Heart sounds: S1 normal heart sound present, S2 normal heart sound present, no gallops, no murmurs and no rubs Neuro General: patient oriented x3 and gait normal Cranial nerves: Yes Equal, round and reactive pupils present Psych Affect: normal affect Coding Level of Care Code Est Pt Level 4 (60588) Diagnoses Low back pain M54.50 High blood pressure I10 Interstitial lung disease J84.9 Assessment & Plan Assessment & Plan (1) Low back pain: Code(s): M54.50 - Low back pain, unspecified Category: Medical Plan: Ongoing low back pain. X-rays show degenerative changes but can not rule out ankylosing spondylitis Referred to Ortho (2) High blood pressure: Code(s): I10 - Essential (primary) hypertension Category: Medical Plan: Blood pressure improved with addition of hydrochlorothiazide Continue lisinopril-hydrochlorothiazide as prescribed. Goal is less than 130/80; fair control today. Will continue to monitor Avoid salt and sodium and work on weight loss (3) Interstitial lung disease: Code(s): J84.9 - Interstitial pulmonary disease, unspecified Category: Medical Plan: X-rays also show some interstitial lung disease. Patient is asymptomatic. He has longstanding history of cannabis smoking. Advised clean air lungs He will let me know if he any symptoms Orders: Referrals Orthopedics Referral M54.50 - Low back pain, unspecified
[2025-02-27 15:35] VITALS: BP 130/70; PULSE 86; RESP 12; TEMP 36.8; O2SAT 97; BMI 30.9
== END 2025-02-27 16:15 | disposition home or self-care (01) ==
LOC: HO.HMCFM 15:23
PROVIDERS: PCP Family Medicine; Visit Provider Family Medicine
DX: M54.50 Low back pain, unspecified (principal); I10 Essential (primary) hypertension; J84.9 Interstitial pulmonary disease, unspecified

== ENCOUNTER → 2025-02-27 15:22 | Outpatient (BNVA) | payer OTHER, SELFPAY | PROVIDERS: PCP Family Medicine; Visit Provider Family Medicine | DX: I10 Essential (primary) hypertension (principal); M54.50 Low back pain, unspecified; J84.9 Interstitial pulmonary disease, unspecified | CPT/HCPCS: 99212 ==

== ENCOUNTER 2025-03-08 14:26 | Outpatient (REF) | payer OTHER, SELFPAY ==
--- NOTE | ~2025-03-08 | FL_ITS ---
EXAMINATION: Modified Barium Swallow CLINICAL INFORMATION: Dysphagia COMPARISON: None TECHNIQUE: Modified barium swallow was performed under lateral fluoroscopy with patient in standing position. Barium mixed with solids and liquids of different consistencies was administered by the speech pathologist. Examination was recorded in the fluoroscopy suite. FINDINGS: Patient was given numerous consistencies. Persistent flash laryngeal penetration was present on thin liquids. There was no glottic or subglottic aspiration evident. FLUOROSCOPY TIME: 1 minute, 44 seconds Number of Spot Images: N/A DOSE AREA PRODUCT: 1119 uGy-m2 (microgray-meter squared) FL/FL Modified Barium Swallow IMPRESSION: 1. Persistent flash penetration on thin liquids. No glottic or subglottic aspiration. Please refer to the full speech therapy report to follow for further detail. Electronically signed by: Minh Tatum MD 03/08/2025 03:01 PM LEXIE NUÑEZ
--- NOTE | 2025-03-09 10:04 | MHC.SL.IMP ---
Date of Plan of Treatment: 03/08/25 Onset of Symptoms/Illness: 12/23/23 Date Treatment Started: 03/08/25 Admitting Diagnosis: Hx GERD Primary Speech & Language Diagnosis: R13.12 Oropharyngeal Phase Dysphagia Reason for Today's Visit: 82196 Modified Barium Swallow Study Pre-evaluation Dietary Consistencies: Regular Pre-evaluation Liquid Consistency: Thin Pre-evaluation Medication Administration: Whole with Liquid Medical History: Modified Barium Swallow Study Fluoroscopic Evaluation of Swallowing Function CPT Code 86434 Evaluation Year: 2024 Reason for Study: Patient reporting difficulty swallowing. Referring Physician: Gage Crum PA-C Evaluating Clinician: Kerrie Fisher MA, CCC-BASIC SCIENCES PROFESSOR Study Number: 1 Patient Name: Fercho Rizo Colon Status: Outpatient, Ambulatory/Assisted Age: 65 Sex: Male Medical History Medical History Laboratory exam ordered as part of routine general medical examination Screening for prostate cancer Screening for colon cancer Adult general medical exam High blood pressure High cholesterol Mini stroke Surgical History S/P cholecystectomy History of appendectomy Current (pre-evaluation) Intake/Diet: Route: PO Diet Grade: Regular Liquid Consistencies: Thin Pre-Study Functional Oral Intake Scale (FOIS): 7- Total oral intake with no restrictions Pain: None reported at time of study SUBJECTIVE: Patient is a 65 year old male referred for a modified barium swallow study (MBSS) by the Neurology and Sleep office. Patient reports having trouble swallowing and feeling like solids and liquids are ?slow to go down? his throat and esophagus. He denies pain with swallowing and denies choking episodes. Per EMR, he has had an MBSS done in the past on 12/23/23 showing flash penetration with thin liquids, with no subsequent aspiration, and good overall clearance. Speech therapy was not indicated at the time and patient was recommended referral to [facility] for GERD. Oral Motor Exam Facial Symmetry: Symmetrical Mouth Occlusion: Normal Oral-Facial Teeth Characteristics: Intact/Normal Oral-Facial Lip Pucker Description: Normal Oral-Facial Smile (Lips) Description: Normal Oral-Facial Puff Cheeks Description: Normal Tongue Size: Normal Tongue Excursion Description: Normal Tongue Range of Movement Description: Normal Tongue Speed of Movement Description: Normal Tongue Strength of Movement (against opposing pressure): Normal Tongue Movement Characteristics: Normal/Absent Food and Liquid Trials: Oral Impairment: Lip Closure: Did not test Oral Impairment: Tongue Control During Bolus Hold: 2=Posterior escape of less than half of bolus Oral Impairment: Bolus Preparation/Mastication: 1=Slow prolonged chewing/mashing with complete re-collection Oral Impairment: Bolus Transport/Lingual Motion: 1= Delayed initiation of tongue motion Oral Impairment: Oral Residue: 2=Residue collection on oral structures Oral Impairment:Initiation of Pharyngeal Swallow: 3=Bolus head in pyriforms Pharyngeal Impairment: Soft Palate Elevation: 0=No bolus between soft palate (SP)/pharyngeal wall (PW) Pharyngeal Impairment: Laryngeal Elevation: 1=Partial thyroid cartilage/arytenoids to epiglottic petiole movement Pharyngeal Impairment: Anterior Hyoid Excursion: 1=Partial anterior movement Pharyngeal Impairment: Epiglottic Movement: 1=Partial inversion Pharyngeal Impairment: Laryngeal Vestibular Closure:: 1=Incomplete: narrow column air/contrast in laryngeal vestibule Pharyngeal Impairment: Pharyngeal Stripping Wave: 0=Present: complete Pharyngeal Impairment: Pharyngeal Contraction: Did not test Pharyngeal Impairment: Pharyngoesophageal Segment Openin=Partial distention/partial duration: partial obstruction of flow Pharyngeal Impairment: Tongue Base (TB) Retraction: 1=Trace column of contrast/air between TB and posterior PW Pharyngeal Impairment: Pharyngeal Residue: 1=Trace residue within or on pharyngeal structures Pharyngeal Impairment: Esophageal Clearance Upright Position: Did not test Impressions and Recommendations OBJECTIVE: Time-out: performed at 15:00 Evaluation Start: 14:45; Stop: 14:50 Patient Positioning: Standing Viewing Planes: LATERAL ONLY Contrast: MBSImP? Standardized Protocol using commercially prepared, standardized Barium viscosities, including: Varibar? THIN LIQUID (40% w/v, <15 cps) , Varibar? PUDDING (40% w/v, <1658-5852 cps) , 1/2 Shortbread Cookie (1 x1 x.25 ) MBSImP ID: [id number] MBSImP Results: Lip closure for intraoral bolus containment could not be assessed due to logistical reasons not related to physiologic impairment. Tongue control during bolus hold resulted in posterior escape of less than half of the bolus. Bolus preparation and mastication resulted in slow, prolonged chewing/mashing but with complete re-collection. Bolus transport/lingual motion demonstrated delayed initiation of tongue motion. Oral residue was a collection on oral structures. Initiation of the pharyngeal swallow occurred when the bolus head was in the pyriform sinuses. Soft palate elevation resulted in no bolus between the soft palate and the pharyngeal wall. Laryngeal elevation was decreased, with partial superior movement of the thyroid cartilage/partial approximation of the arytenoids to the epiglottic petiole. Anterior hyoid excursion demonstrated partial anterior movement. Epiglottic movement resulted in partial inversion. Laryngeal vestibular closure was incomplete, with a narrow column of air/contrast noted within the laryngeal vestibule at the height of the swallow. Pharyngeal stripping wave was present and complete. Pharyngeal contraction could not be determined due to logistical reasons not related to physiologic impairment. Pharyngoesophageal segment opening demonstrated partial distension/partial duration, with partial obstruction of bolus flow. Tongue base retraction allowed a trace column of contrast or air between the retracted tongue base and the posterior pharyngeal wall. Pharyngeal residue was a trace within or on pharyngeal structures. Esophageal clearance in the upright position could not be assessed due to logistical reasons not related to physiologic impairment. Oral Impairment Score: 9 (absence of score, component 1) Pharyngeal Impairment Score: 5 (absence of score, component 13) Esophageal Impairment Score: --- (absence of score, component 17) Laryngeal Penetration and Aspiration: Neither penetration nor aspiration was observed in today's study with Cookie, Pudding-thick. Penetration was observed in today's study. Thin Contrast entered the airway, remained above the vocal folds, and was ejected from the airway. ASSESSMENT: This exam was performed by the radiologist and the speech pathologist. Patient was standing for lateral view. He fed himself independently and trialed the following consistencies: -Thin liquid (via individual sips & rapid sequential sips) -Puree (mixture applesauce w/ barium pudding) -Regular (shortbread cookies coated w/ barium pudding) Note delayed lingual transport, resulting in premature posterior spillage from the oral cavity and contrast collecting in the valleculae and the pyriforms prior to the pharyngeal swallow trigger. Mastication was mildly slowed, characterized by piece meal clearing. Pharyngeal swallow trigger was delayed, initiated as the bolus head reached the posterior laryngeal surface of the epiglottis, and at times the pyriforms. Post-swallow, there was mild residue coating the blade of tongue which cleared on secondary swallows. No evidence of nasopharyngeal reflux. Partial laryngeal elevation, with partial epiglottic inversion and incomplete laryngeal vestibular closure. There was flash penetration seen consistently with sips of thin liquid. A trace amount of contrast momentarily entered the airway above the vocal folds and spontaneously cleared. No evidence of aspiration during this exam. There was trace residue on the tongue base, in the valleculae, in the pyriforms, and on the posterior pharyngeal wall. Note partial distention through the pharyngoesophageal segment opening (PES), with retrograde flow of trace liquid from the PES into the pyriform, which cleared on subsequent swallows. This was not seen with other consistencies. The following compensatory strategies have not been used until today's study, but when employed, improved swallowing function: Additional Swallow(s) per Bolus eliminated Oral Residue, Pharyngeal Residue Liquid Intake Recommendation: Thin Dietary Recommendations: Regular Medication Administration: Whole with Liquid Please contact the pharmacy regarding appropriate crushable or liquid drug formulations that are available whenever modified delivery is recommended. Compensatory Strategies Recommended: Sitting Upright (90 deg), Small Bites and Sips, Alternate Liquids/Solids, Rate of Ingestion Change Supervision during eating and or drinking: None Needed Recommendation for Speech Therapy: NA:Typical Evaluation Text Comment: Intake Recommendations: Route: PO Diet Grade: Regular Liquid Consistencies: Thin Post-Study Functional Oral Intake Scale (FOIS): 7- Total oral intake with no restrictions Patient presents with mild oropharyngeal dysphagia, characterized by delayed lingual transport, premature posterior spillage, delayed pharyngeal swallow trigger, incomplete laryngeal elevation and partial epiglottic inversion. There was flash penetration seen with thin liquids that spontaneously cleared without any subglottic aspiration. Trace pharyngeal residue cleared with secondary swallows. Suggested Referrals: The patient might benefit from a referral to: Gastroenterology Indication for Referral: Hx GERD Therapy Recommendations: Further Speech Therapy is not warranted at this time. Recommend continue with unmodified diet REGULAR texture solids and THIN liquids, pills WHOLE with LIQUID or PUREE as tolerated by patient. Patient is advised to take small, individual sips of liquid (avoid consecutive sipping). Behavioral strategies to promote clearance include: take small bites, chew food well, alternate with sips of liquid, and ensure upright position during PO intake and for at least 30 minutes afterwards. Clinician - Supplemental, Miscellaneous Communication: It is important to note MBSS objective studies are snapshots in time and Patient function might vary with factors such as time of day or concomitant medical conditions. For this reason, the final treatment plan for this patient should rest with their medical care team. Additional recommendations should be considered with the totality of the Patient in mind. Thank for the opportunity to participate in the care of this patient. If you have any questions about the content of this report, please contact the [facility] at [facility]. Education: Education regarding findings from today's study and plans for therapy were provided to Patient only through Verbal Instruction. Understanding was expressed by the Patient only. Plant Maintenance Supervisor Clinician/Clinical Fellow: No Supervisory Statement: N/A Speech Language Pathologist: Kerrie Fisher M.A., CCC-BASIC SCIENCES PROFESSOR
== END 2025-03-08 14:27 | disposition home or self-care (01) ==
LOC: HO.XRAY 14:26
PROVIDERS: PCP Family Medicine; Visit Provider Physician Assistant Medical
DX: R13.10 Dysphagia, unspecified (principal)
CPT/HCPCS: 74230; 92611

== ENCOUNTER → 2025-03-08 14:30 | Outpatient (BNV) | payer OTHER, SELFPAY | PROVIDERS: PCP Family Medicine; Visit Provider Radiology Diagnostic Radiology | DX: R13.10 Dysphagia, unspecified (principal) | CPT/HCPCS: 74230 ==

== ENCOUNTER 2025-03-27 09:58 | Outpatient (AMB) | payer OTHER, SELFPAY ==
[2025-03-27 10:01] VITALS: BP 160/90; PULSE 89; O2SAT 95; BMI 30.8
--- NOTE | 2025-03-27 10:01 | A.OFFVIS_ITS ---
Vital Signs 03/27/25 10:01 Height 5 ft 10 in Weight 215 lb BMI 30.8 BP 160/90 H Blood Pressure Location Rt brachial Position Sitting Pulse 89 Pulse Source Pulse Oximeter Pulse Oximetry (%) 95 Oxygen Delivery Method Room Air Intake Visit Reasons: 3 mo follow up Supervisor Customer Services Required: No Accompanied by: Self / Same As Patient Allergies levofloxacin Allergy (Intermediate, Verified 03/27/25 10:01) Rash HPI Comments Details: 65 y/o German speaking r. handed male w/ h/o of stroke, presents for a f/u of MARGO. His Vianey and Supervisor Customer Services on IPAD helps with history taking today. PMH 11/2024 HST c/w severe margo AHI is 48% and oxygen nadirs to 83%. 01/2025 Titration in lab completed breathing and oxygen stabilized at 05nsN10 will start therapy and f/u for compliance. History of CVA September 2023 he had syncope and never went to the hospital, he is on a statin and aspirin, [id number]-hctz. 12/25/2024 MRI reviewed with pt. and family today numerous lacunar infarcts, microvascular changes and hemosiderin deposits. 02/2025 Barium Swallow and Speech pathologist evaluation reviewed, dysphagia with fluids, start 12 weeks of therapy for l. sided weakness, drooling, speech and swallow. MARGO Compliance Report Reviewed with pt 12/2024 - 03/2025 Avg Total use 80/89 days and >4 hours is 73%. Avg daily use 4 hours and 46 min Pressures are [id number] and Med leaks 8.9/min AHI is 3.1/hr. He washes his mask, rinses hoses, changes filters and fills reservoir with water. He sleeps better now with the cpap, around 11pm and gets up at 5am, has 2 bathroom breaks. Since starting the cpap machine, he feels more refreshed. His says he is more relaxed all day, and has more energy for walks daily, even if it is for minutes. He has been eating solids now, has to chew slowly, swallow water in between the bolus of foods. Will have 12 weeks of therapy. Acid reflux has improved, still has slurred speech, with continued drooling worse with liquids. He has l. eye droop and l. sided upper / lower ext weakness. He has bilateral paresthesias, with radiating cramps, pins and needles. has gait and balance difficulties, denies falls. He can walk with a cane and or walker in the house when he gets fatigued easily, needs to sit down and rest. His mood is depressed, he has anxiety though better managed. He is less irritable on Abilify. Denies aggressive behavior, a/v hallucinations. He [facility] a behavior [facility]. His memory is poor, he forgets where he places items, has trouble finding them, he needs redirection and repeats the same questions multiple times. He needs help and supervision with all ADLs. Headaches have improved about 1x per week with Sumatriptan, however can last 30min to 1hour in the frontal area locally do not migrate 4/10 dull pain, with photophobia/ phonophobia, no identified triggers. [facility] Medical History Laboratory exam ordered as part of routine general medical examination Screening for prostate cancer Screening for colon cancer Adult general medical exam High blood pressure High cholesterol Mini stroke Surgical History S/P cholecystectomy History of appendectomy Family History Father Colon cancer Social History Household Members: Family Both parents involved: No Caregiver staying overnight: No Housing: House Are you a primary ambulatory care coordinator to a significant other at home: No Do you presently have visiting nurse or other home services: No 75 years or older and lives alone: No Alcohol intake: never Patient Tobacco Use Status: Never used Tobacco e-Cigarette/Vaping Use: Never Used Substance Use Type: Marijuana service: No Current occupational status: other Cognitive needs: No Hearing needs: No Vision needs: No Physical Exam Vital Signs: Last Vital Signs Pulse 89 03/27/25 10:01 BP 160/90 H 03/27/25 10:01 Pulse Ox 95 03/27/25 10:01 Oxygen Delivery Method Room Air 03/27/25 10:01 BMI result Body Mass Index 30.8 Const General: cooperative, comfortable and no acute distress Nutritional Appearance: average body habitus Orientation/consciousness: patient oriented x3 Limitations: language barrier HEENT Face and sinus: Yes other (assymetric facial expression drooping of L. lid and L. lip.) Mouth: lip abnormal and tongue abnormal (points to the left) Teeth and gingiva: other ([place] score of 3) Eyes Pupils: Equal, round and reactive pupils present Resp Effort & Inspection: normal respiratory effort Neuro Other: L. Lid droop, L. lip droop, facial drooping left side, LUE / LLE weaker than right side. LUE hand movements are slower than right and gets confused with finger to nose coordination. L Upper extremity tremor >R. Rombergs 30 sec sways front to back, gets dizzy, pronates arms bilaterally lowers, can not hold them up >30sec. Gait sways and leans towards the r. towards cane in r. hand General: patient oriented x3 Cranial nerves: Yes Equal, round and reactive pupils present, Yes Normal accommodation reflex present, Yes Ability to bilaterally rotate head present and Yes Ability to bilaterally elevate shoulders present Speech: Other speech findings present (Neuro) (does not talk unable to evaluate not sure if it is a language barrier.) Gait exam (Neuro): Assistive device used and Other gait observations present (uses a cane and sways to the right) Motor exam (neuro): Abnormal motor strength present (upper and lower l. extremities ) and Abnormal muscle tone present Deep tendon reflexes (DTR's): Right triceps reflex intensity grade: 2+, Left triceps reflex intensity grade: 2+, Rt Biceps (C5, C6): 2+, Left biceps reflex intensity grade: 2+, Right brachioradialis reflex intensity grade: 2+, Left brachioradialis reflex intensity grade: 2+, Right patellar reflex intensity grade: 2+ and Left patellar reflex intensity grade: 2+ Psych Appearance: well kempt Speech and movement: Slowed movement present (Neuro) Attitude: cooperative Results Reviewed Results Reviewed: IMPRESSION: No acute infarct, or acute intracranial hemorrhage or mass lesions. Multiple chronic lacunar infarcts involving tabitha, bilateral thalami, bilateral basal ganglia, and periventricular white matter. Numerous predominantly central small foci of susceptibility artifact, most likely represent hypertensive microhemorrhages /hemosiderin deposition. Moderate generalized cerebral volume loss and chronic microvascular ischemic changes. Paranasal sinus disease. FL/FL Modified Barium Swallow IMPRESSION: 1. Persistent flash penetration on thin liquids. No glottic or subglottic aspiration. Please refer to the full speech therapy report to follow for further detail. Speech Pathologist note 12 weeks of therapy for dysphagia. Cpap titration [id number] - Pressures with Airfit F20 full face mask Assessment & Plan Assessment & Plan (1) MARGO on CPAP: Comment: AHI 48 and O2 Nadirs to 83% - severe margo will start cpap 5-20cm and send for titration Code(s): G47.33 - Obstructive sleep apnea (adult) (pediatric) Category: Medical (2) Fatigue due to sleep pattern disturbance: Code(s): R53.83 - Other fatigue; G47.9 - Sleep disorder, unspecified Category: Medical (3) History of CVA (cerebrovascular accident): Code(s): Z86.73 - Personal history of transient ischemic attack (TIA), and cerebral infarction without residual deficits Category: Medical (4) Loud snoring: Code(s): R06.83 - Snoring Category: Medical (5) Worsening headaches: Comment: Nurtec approved Code(s): R51.9 - Headache, unspecified Category: Medical (6) Left-sided weakness: Code(s): R53.1 - Weakness Category: Medical (7) Unsteady gait: Code(s): R26.81 - Unsteadiness on feet Category: Medical Plan Severe MARGO on cpap PSG in lab -titration completed pressures adjusted to [id number], airfit full face mask with chin straps. Continue PT 2x a week for L. sided weakness of upper/ lower extremity and unsteadiness on feet due to gait / balance difficulties. Speech pathologist note reviewed drooling and dysphagia, continue 12 weeks therapy. CTscan reviewed moderate white matter hypodensities, microvascular ischemic disease, with multiple old lacunar infarcts in tabitha and basal ganglia, will send for MRI to r/o demyelinating diseases. Headaches: May Start Nurtec 75mg po take every other day as prescribed for episodic prevention of migraines. Continue 400mg magnesium qpm Stop sumatriptan 50mg po daily once Nurtec is started, pt states he is taking Sumatriptan prn at the onset of headaches. F/U in 3 months Medications: Refilled rimegepant (Nurtec ODT) take one tablet every other day for migraine prevention. 75 mg PO Q OTHER DAY PRN 30 tabs 0RF migraine headache 2 months Z86.69 - Personal history of other diseases of the nervous system and sense organs Patient Instructions: Sleep Hygiene provided: set a scheduled bedtime and wake time to help regulate the circadian rhythm and balance the release of pituitary hormones. Sleep in a dark room, temperatures below 68 degrees, and no devices n bed. Limit caffeinated products 6 hours prior to bed, and limit fluids 2-4 hours prior to bed. Gentle night yoga, diffusing essential oils, and playing soft music can be relaxing. Rimegepant Nurtec: * Mechanism of Action: Rimegepant works by blocking the CGRP receptor, which prevents the activity of a protein involved in causing migraine pain and inflammation. This differs from older medications like triptans, which can constrict blood vessels and may be unsafe for patients with cardiovascular disease. Coding Level of Care Code Est Pt Level 4 (80240) Add On Problem Visit Only Diagnoses MARGO on CPAP G47.33 Fatigue due to sleep pattern disturbance R53.83; G47.9 History of CVA (cerebrovascular accident) Z86.73 Loud snoring R06.83 Worsening headaches R51.9 Left-sided weakness R53.1 Unsteady gait R26.81 Time Spent (min) 40
== END 2025-03-27 11:00 | disposition home or self-care (01) ==
LOC: HO.HSMS 09:59
PROVIDERS: PCP Family Medicine; Visit Provider Physician Assistant Medical
DX: G47.33 Obstructive sleep apnea (adult) (pediatric) (principal); R53.83 Other fatigue; G47.9 Sleep disorder, unspecified; Z86.73 Personal history of transient ischemic attack (TIA), and cerebral infarction without residual deficits; R06.83 Snoring; R51.9 Headache, unspecified; R53.1 Weakness; R26.81 Unsteadiness on feet
CPT/HCPCS: 99214

== ENCOUNTER → 2025-03-27 09:58 | Outpatient (BNVA) | payer OTHER, SELFPAY | PROVIDERS: PCP Family Medicine; Visit Provider Physician Assistant Medical | DX: G47.33 Obstructive sleep apnea (adult) (pediatric) (principal); R53.83 Other fatigue; Z86.73 Personal history of transient ischemic attack (TIA), and cerebral infarction without residual deficits; R06.83 Snoring; R51.9 Headache, unspecified; R53.1 Weakness; R26.81 Unsteadiness on feet; Z99.89 Dependence on other enabling machines and devices; Z79.899 Other long term (current) drug therapy; Z71.89 Other specified counseling; Z86.69 Personal history of other diseases of the nervous system and sense organs | CPT/HCPCS: 99212 ==